=== PATIENT | female | born 1995 | race Caucasian/White ===

== ENCOUNTER 2017-06-08 09:01 | Outpatient (RCR) | payer MEDICAID, SELFPAY ==
[2017-06-08 09:37] LABS: Absolute Lymphocyte Count 1.73 X10^3/ul (0.83-4.51); Absolute Neutrophil Count 2.9 X10^3/uL (2.0-7.7); Basophil# 0.03 X10^3/uL; Basophil% 0.6 % (0-1); Eosinophils% 1.9 % (0-5); Hemoglobin 12.4 g/dl (12.0-15.0); Lymphocyte # 1.73 X10^3/ul (4.0); Lymphocyte % 33.7 % (19-41); Mean Corpuscular Hgb 24.8 pg (27.0-32.0); Mean Corpuscular Volume 79.8 fL (81-99); Mean Platelet Vol. 12.2 fl (6.2-12.0); Monocyte# 0.39 X10^3/uL; Monocyte% 7.6 % (0-10); Neutrophil # 2.88 X10^3/uL (2.7-7.7); POSITIVE COUNT NO; POSITIVE DIFFERENTIAL NO; POSITIVE MORPHOLOGY NO; Platelet Count 214 K/mm3 (150-450); RBC Distribution Width CV 14.8 % (11.6-14.6); RBC Distribution Width SD 42.3 fl (35.1-43.9); Red Blood Count 5.01 M/mm3 (4.2-5.4); White Blood Count 5.1 K/mm3 (4.4-11.0)
[2017-06-08 09:47] LABS: AST(SGOT) 48 U/L (15-37); Alanine Aminotransfer ALT/SGPT 55 U/L (13-56); Albumin, Serum 4.2 g/dL (3.2-5.0); Alkaline Phosphatase 171 U/L (45-117); Anion Gap 7 (5-15); BUN 14 mg/dL (7-18); BUN/Creat Ratio 13.6 RATIO (10-20); Calcium,Total 9.3 mg/dL (8.5-10.1); Chloride 105 mmol/L (98-107); Creatinine, Serum 1.03 mg/dL (0.55-1.02); EST Glomerular Filtration Rate 71 mL/min (>60); Est Glom Filt Rate - Afr Amer 86 mL/min (>60); GGTP 543 U/L (5-55); Globulin 4.1 g/dL (2.2-4.2); Glucose 107 mg/dL (74-106); Magnesium 1.8 mg/dL (1.6-2.6); Potassium 4.3 mmol/L (3.5-5.1); Protein, Total 8.3 g/dL (6.4-8.2); Sodium Level 138 mmol/L (136-145)
[2017-06-08 10:05] LABS: Prograf-FK506 TO CCF/UNIV MAILED SPECIMEN
== END 2017-06-08 09:30 | disposition home or self-care (01) ==
LOC: LAB 09:01
DX: Z94.4 Liver transplant status (principal)
CPT/HCPCS: 36415; 80053; 82977; 83735; 84100; 85025

== ENCOUNTER 2017-07-09 16:33 | Emergency (ER) | payer MEDICAID, SELFPAY ==
[2017-07-09 16:36] VITALS: BP 151/109; PULSE 122; RESP 22; TEMP 37.3; O2SAT 97; BMI 23.2
--- NOTE | 2017-07-09 16:45 | EKG12_ITS ---
Test Reason : CHEST PAIN Blood Pressure : / mmHG Vent. Rate : 116 BPM Atrial Rate : 116 BPM P-R Int : 142 ms QRS Dur : 074 ms QT Int : 312 ms P-R-T Axes : 042 037 020 degrees QTc Int : 433 ms Sinus tachycardia Otherwise normal ECG Confirmed by KATYA IGLESIAS ([id number]), city editor DEJON BYRNE ([id number] on 07/13/2017 1:41:20 PM Referred By: LAINE Confirmed By:KATYA IGLESIAS
--- NOTE | 2017-07-09 16:56 | RAD_ITS ---
STUDY: X-RAY CHEST REASON FOR EXAM: Female, 21 years old. Chest pain TECHNIQUE: Single frontal view of the chest. COMPARISON: May 16, 2017 FINDINGS: The lungs are clear and expanded. There is no demonstrated pleural abnormality. Normal size heart. Normal mediastinum and rafael. Normal visualized pulmonary arteries. Normal visualized aortic arch and descending thoracic aorta. Normal visualized thoracic spine. Normal visualized ribs, clavicles, and shoulders. There is no demonstrated abnormality of the visualized soft tissue structures of the upper abdomen. RAD/Chest 1 View (Portable) IMPRESSION: Normal x-ray examination of the chest. Electronically Signed: Stefano Baez MD at 17:53 EST , Service support ,
[2017-07-09 16:58] VITALS: PULSE 126; RESP 27; O2SAT 92; O2SAT 96
--- NOTE | 2017-07-09 17:02 | ED.RN ---
PT REPORTS SORE THROAT, MIGRAINE AND CHEST TIGHTNESS. RECENTLY RELEASED FROM [facility] FOR ABDOMINAL ISSUES. UNABLE TO GWET FLU SHOT, AND REPORTS HAVING STREP THROAT 5 TIMES IN THE LAST YEAR.
--- NOTE | 2017-07-09 17:03 | CT_ITS ---
STUDY: CTA CHEST REASON FOR EXAM: Female, 21 years old. Chest pain and shortness of breath. Liver transplant. RADIATION DOSAGE (If Supplied By Facility): CTDIvol = ( 12.41 ) mGy, DLP = ( 172.32 ) mGycm TECHNIQUE: The examination was performed with the intravenous administration of 75 ml of Isovue 370 contrast material. Post-processing of the angiographic images was performed, with multiplanar reformation and 3D reconstruction. Individualized dose optimization techniques were used for this CT. COMPARISON: Chest x-ray July 09, 2017 FINDINGS: Normal enhancement of the main pulmonary artery and right and left pulmonary arteries. Normal enhancement of the bilateral peripheral pulmonary arteries. There is no demonstrated pulmonary embolism. Normal thoracic aorta and visualized great vessels. There is no demonstrated aortic dissection. Normal heart and pericardium. Normal mediastinum. Normal hilar regions. Normal visualized trachea and bronchi. The lungs are well expanded. Mild diffuse perihilar groundglass opacity consistent with edema. Normal pleura. Normal chest wall structures. Normal osseous structures. Normal visualized upper abdomen. CT/CTA Chest W/WO Contrast IMPRESSION: Mild edema or pneumonitis. Electronically Signed: Stefano Baez MD at 18:07 EST , Service support ,
--- NOTE | 2017-07-09 17:06 | ED.VISSUMM ---
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 She was admitted there 1 week ago for vomiting and diarrhea her liver status is currently stable. She was in her usual state of health when she went to sleep last night and then woke with a sore throat headache and rapid heart rate hx of chronic strep pharyngitis she has been seen by ENT and told she needs a tonsillectomy but has refused to have the procedure done, she has no history of [place] PE DVT she does have a history of some nonspecific type of pneumonia for which she takes Bactrim 3 times a week. She is able to eat and swallow her bowel bladder habits have been normal Physical Examination: [] Rate is 110 sinus she is resting in the bed no distress her nose is clear her throat tonsils are quite large and red no obvious exudate her airways intact's breathing is normal swallowing is normal lungs are clear heart tones are tachycardic to 110 abdomen soft nontender upper lower extremity unremarkable lower extremities no sinus clubbing or edema neurologically she is awake and alert Test Results: [] Emergency Department Course and Treatment: [] Differential is rather extensive given all the above a comprehensive evaluations pursued Her strep throat screen was positive, her labs including liver function studies CTA chest x-ray were all otherwise unremarkable EKG sinus rhythm nothing acute reevaluation he states her symptoms are markedly improved she has no headache no throat pain no chest pain or heart rate now is about 100 she wants to go home CT of the chest did not show any signs of PE there was some question of edema versus pneumonitis but she has no coughing or pulmonary symptoms we discussed this finding she indicates that that really is nothing new and she does not feel as if she has any type of pneumonia now. discussed of frequent episodes of strep throat that she apparently has I recommended that she again follow up with the ENT she has been referred to to have the tonsillectomy she indicates she wants to be put on amoxicillin which is helped in the past and she will otherwise follow-up with her physicians for all the above symptoms discussed further management options she states her symptoms are resolved she feels fine she wants to go home, and again she will follow-up with her physicians Treatment Plan: [] Disposition: [] Home stable Impression: [] Acute strep pharyngitis, headache resolved, palpitations resolved history of liver transplant This note was generated with [employer] dictation software. It may contain incorrect words, spelling, and punctuation that were not noted in review of the chart prior to signing ED Disposition - Plan for ED Patient: Chief Complaint: Chest Pain Referrals: Care Physician,No Primary [Primary Care Provider] -
[2017-07-09] MEDS: DiphenhydrAMINE 50 MG/ML Syringe 25 MG IV (17:08)
[2017-07-09] MEDS: 0.9% Normal Saline 1,000 ML 150 ML IV (17:09)
[2017-07-09] MEDS: proCHLORPERazine 10 MG/2 ML Vial IV (17:09)
--- NOTE | 2017-07-09 17:09 | ED.DCSUM_ITS ---
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 she reports her liver status is chronic rejection being managed by physicians at this hospital. She was admitted there 1 week ago for vomiting and diarrhea her liver status is currently stable. She was in her usual state of health when she went to sleep last night and then woke with a sore throat headache and rapid heart rate hx of chronic strep pharyngitis she has been seen by ENT and told she needs a tonsillectomy but has refused to have the procedure done, she has no history of [place] PE DVT she does have a history of some nonspecific type of pneumonia for which she takes Bactrim 3 times a week. She is able to eat and swallow her bowel bladder habits have been normal Physical Examination: [] Rate is 110 sinus she is resting in the bed no distress her nose is clear her throat tonsils are quite large and red no obvious exudate her airways intact's breathing is normal swallowing is normal lungs are clear heart tones are tachycardic to 110 abdomen soft nontender upper lower extremity unremarkable lower extremities no sinus clubbing or edema neurologically she is awake and alert Test Results: [] Emergency Department Course and Treatment: [] Differential is rather extensive given all the above a comprehensive evaluations pursued Her strep throat screen was positive, her labs including liver function studies CTA chest x-ray were all otherwise unremarkable EKG sinus rhythm nothing acute reevaluation he states her symptoms are markedly improved she has no headache no throat pain no chest pain or heart rate now is about 100 she wants to go home CT of the chest did not show any signs of PE there was some question of edema versus pneumonitis but she has no coughing or pulmonary symptoms we discussed this finding she indicates that that really is nothing new and she does not feel as if she has any type of pneumonia now. discussed of frequent episodes of strep throat that she apparently has I recommended that she again follow up with the ENT she has been referred to to have the tonsillectomy she indicates she wants to be put on amoxicillin which is helped in the past and she will otherwise follow-up with her physicians for all the above symptoms discussed further management options she states her symptoms are resolved she feels fine she wants to go home, and again she will follow-up with her physicians Treatment Plan: [] Disposition: [] Home stable Impression: [] Acute strep pharyngitis, headache resolved, palpitations resolved history of liver transplant This note was generated with [employer] dictation software. It may contain incorrect words, spelling, and punctuation that were not noted in review of the chart prior to signing ED Disposition - Plan for ED Patient: Chief Complaint: Chest Pain Referrals: Care Physician,No Primary [Primary Care Provider] -
[2017-07-09 17:12] LABS: Absolute Lymphocyte Count 0.93 X10^3/ul (0.83-4.51); Absolute Neutrophil Count 8.8 X10^3/uL (2.0-7.7); Basophil# 0.02 X10^3/uL; Basophil% 0.2 % (0-1); Eosinophil# 0.11 X10^3/uL; Eosinophils% 1.1 % (0-5); Hematocrit 37.1 % (37-47); Hemoglobin 11.4 g/dl (12.0-15.0); Lymphocyte # 0.93 X10^3/ul (4.0); Lymphocyte % 8.9 % (19-41); Mean Corp Hgb Conc 30.7 g/gl (32-36); Mean Corpuscular Hgb 24.9 pg (27.0-32.0); Mean Corpuscular Volume 81.2 fL (81-99); Mean Platelet Vol. 11.6 fl (6.2-12.0); Monocyte% 4.8 % (0-10); Neutrophil # 8.84 X10^3/uL (2.7-7.7); Neutrophil % 84.8 % (47-70); Platelet Count 177 K/mm3 (150-450); RBC Distribution Width CV 15.1 % (11.6-14.6); RBC Distribution Width SD 43.6 fl (35.1-43.9); Red Blood Count 4.57 M/mm3 (4.2-5.4); White Blood Count 10.4 K/mm3 (4.4-11.0)
[2017-07-09 17:14] VITALS: TEMP 38.3
[2017-07-09 17:20] LABS: POSITIVE COUNT NO; POSITIVE DIFFERENTIAL NO; POSITIVE MORPHOLOGY NO
[2017-07-09 17:27] LABS: Anion Gap 10 (5-15); BUN 14 mg/dL (7-18); BUN/Creat Ratio 14.2 RATIO (10-20); Calcium,Total 8.8 mg/dL (8.5-10.1); Chloride 105 mmol/L (98-107); Creatinine, Serum 0.99 mg/dL (0.55-1.02); EST Glomerular Filtration Rate 75 mL/min (>60); Est Glom Filt Rate - Afr Amer 90 mL/min (>60); Glucose 110 mg/dL (74-106); Potassium 3.6 mmol/L (3.5-5.1); Sodium Level 137 mmol/L (136-145)
[2017-07-09 17:58] LABS: AST(SGOT) 27 U/L (15-37); Alanine Aminotransfer ALT/SGPT 34 U/L (13-56); Albumin, Serum 4.2 g/dL (3.2-5.0); Alkaline Phosphatase 131 U/L (45-117); Bilirubin, Direct 0.11 mg/dL (0.00-0.30); Globulin 4.1 g/dL (2.2-4.2); Lipase 84 U/L (73-393); Protein, Total 8.3 g/dL (6.4-8.2)
[2017-07-09 19:03] VITALS: PULSE 113; RESP 25; O2SAT 100
--- NOTE | 2017-07-09 19:23 | ED.DEP ---
ED Disposition - Plan for ED Patient: Chief Complaint: Chest Pain Instructions: ED Chest Pain Atypical Unkn Cause Prescriptions: Amoxicillin 500 mg PO TID #30 tab Referrals: Care Physician,No Primary [Primary Care Provider] - Additional Instructions: Follow-up with your doctors for all the above, follow-up with the ENT for tonsillectomy
[2017-07-09] MEDS: AMOXICILLIN 500 MG CAPSULE PO (19:34)
[2017-07-09 19:36] VITALS: BP 137/83; PULSE 114; RESP 18; O2SAT 100
--- NOTE | 2017-07-09 19:37 | ED.RN ---
IV DC'ED, CATHETER INTACT, SMALL GAUZE DRESSING PLACED. DISCHARGE INSTRUCTIONS GIVEN TO AND REVIEWED WITH PATIENT, PATIENT DENIES QUESTIONS OR CONCERNS AND VOICES UNDERSTANDING OF DISCHARGE INSTRUCTIONS. PT AMBULATES OUT OF ROOM WITHOUT DIFFICULTY.
== END 2017-07-09 19:39 | disposition home or self-care (01) ==
PROVIDERS: Emergency Provider Emergency Medicine
DX: J02.0 Streptococcal pharyngitis (principal); J18.9 Pneumonia, unspecified organism; G43.909 Migraine, unspecified, not intractable, without status migrainosus; R00.2 Palpitations; Z94.4 Liver transplant status
CPT/HCPCS: 71045; 71275; 80048; 80076; 83690; 84484; 85025; 87880; 93005; 96361; 96374; 96375; 99285; J7030; J7040; Q9967; A4216

== ENCOUNTER → 2017-08-13 08:59 | Outpatient (CLI) | payer MEDICAID, SELFPAY ==
[2017-08-13 09:46] LABS: Absolute Lymphocyte Count 1.21 X10^3/ul (0.83-4.51); Absolute Neutrophil Count 2.1 X10^3/uL (2.0-7.7); Basophil# 0.01 X10^3/uL; Basophil% 0.3 % (0-1); Eosinophil# 0.08 X10^3/uL; Eosinophils% 2.2 % (0-5); Hematocrit 39.5 % (37-47); Hemoglobin 11.8 g/dl (12.0-15.0); Lymphocyte # 1.21 X10^3/ul (4.0); Lymphocyte % 33.1 % (19-41); Mean Corp Hgb Conc 29.9 g/gl (32-36); Mean Corpuscular Hgb 24.4 pg (27.0-32.0); Mean Corpuscular Volume 81.8 fL (81-99); Mean Platelet Vol. 11.9 fl (6.2-12.0); Monocyte# 0.27 X10^3/uL; Monocyte% 7.4 % (0-10); Neutrophil # 2.09 X10^3/uL (2.7-7.7); Platelet Count 206 K/mm3 (150-450); RBC Distribution Width CV 15.1 % (11.6-14.6); RBC Distribution Width SD 45.5 fl (35.1-43.9); Red Blood Count 4.83 M/mm3 (4.2-5.4); White Blood Count 3.7 K/mm3 (4.4-11.0)
[2017-08-13 09:47] LABS: POSITIVE COUNT NO; POSITIVE DIFFERENTIAL NO; POSITIVE MORPHOLOGY NO
[2017-08-13 10:19] LABS: AST(SGOT) 46 U/L (15-37); Alanine Aminotransfer ALT/SGPT 59 U/L (13-56); Alkaline Phosphatase 149 U/L (45-117); Anion Gap 8 (5-15); BUN 15 mg/dL (7-18); BUN/Creat Ratio 14.9 RATIO (10-20); Calcium,Total 9.1 mg/dL (8.5-10.1); Chloride 107 mmol/L (98-107); Creatinine, Serum 1.01 mg/dL (0.55-1.02); EST Glomerular Filtration Rate 72 mL/min (>60); Est Glom Filt Rate - Afr Amer 88 mL/min (>60); GGTP 388 U/L (5-55); Globulin 4.1 g/dL (2.2-4.2); Glucose 96 mg/dL (74-106); Magnesium 1.8 mg/dL (1.6-2.6); Potassium 4.2 mmol/L (3.5-5.1); Protein, Total 8.1 g/dL (6.4-8.2); Sodium Level 140 mmol/L (136-145)
[2017-08-15 08:44] LABS: Tacrolimus (FK506) 6.4 ng/mL (2.0-20.0)
== END ==
DX: Z94.4 Liver transplant status (principal)
CPT/HCPCS: 36415; 80053; 80197; 82977; 83735; 84100; 85025

== ENCOUNTER 2017-09-03 14:42 | Emergency (ER) | payer MEDICAID, SELFPAY ==
--- NOTE | 2017-09-03 | CYSPIN_PTH ---
PATIENT: GREG LINDA LOC: ED U#:[id number] AGE/SX: 21/F ROOM: RE09/03/[address]: Dr. Brock Obregon MD : [id number] BED: DIS: 09/03/2017 SPEC #: [id number] RECD: 09/04/17 07:52 STATUS: TAM MOHAN #: [id number] CHICHO: 09/03/17 00:[address]: Brock Obregon DEPT: CYTOLOGY RECD BY: Jose Antonio Sanchez ENTERED: 09/04/17 07:52 SP TYPE: CYSPIN FL OTHR DR: Dr. Mark Vaughan MD Tissues: Cerebrospinal Fluid Procedures: Pap Stain (control) Special Stain Group II Cytospin Fluid HEADER OPERATION: Lumbar puncture PRE-OP DIAGNOSIS: Headache, neck pain/stiffness, temperature TISSUE SUBMITTED: Cerebrospinal fluid for cytology DIAGNOSIS CYTOLOGY Cerebrospinal fluid for cytology (cytospin): Negative for malignant cells. SJ:bhavesh 09/07/17 CYTOLOGY STUDY Slides are reviewed. The specimen is paucicellular and consists of lymphocytes and monocytes. CYTOLOGY GROSS Received is 3 ml of clear fluid labeled with the patient's name and and designated per the requisition as CSF. Submitted for cytology preparation. 09/04/17 TC:4 CPT: 88278
[2017-09-03 14:44] VITALS: BP 131/87; PULSE 137; RESP 14; TEMP 37.7; O2SAT 97; BMI 22.2
--- NOTE | 2017-09-03 15:03 | CT_ITS ---
STUDY: CT BRAIN WITHOUT CONTRAST REASON FOR EXAM: Female, 21 years old. Dizziness RADIATION DOSAGE (If Supplied By Facility): CTDIvol = ( 44.99 ) mGy, DLP = ( 728.62 ) mGycm TECHNIQUE: Transaxial CT imaging of the brain was performed without administration of intravenous contrast material. Individualized dose optimization techniques were used for this CT. COMPARISON: 04/14/2017 FINDINGS: There is no acute bleed or infarct. There are normal white matter tracts. The ventricles are normal in configuration. There is no hydrocephalus. The visualized paranasal sinuses are clear. The mastoid air cells are well aerated. There is no skull fracture. CT/Brain/Head without Contrast IMPRESSION: No acute intracranial abnormality. Electronically Signed: Dwayne Thomas, at 16:04 EDT Tel , Service support ,
--- NOTE | 2017-09-03 15:34 | ED.DCSUM_ITS ---
- ER Visit Summary Date of Service: 09/03/17 Chief Complaint: Bilateral headache with neck pain and stiffness and documented temperature to 102?F History of Present Illness: The patient is a 21 F status post liver transplant on immunosuppressive meds presents with a three-day headache of bilateral head with neck pain and stiffness. She complains of photophobia. She complained of nausea, vomiting diarrhea today and documented temperature 102.0?F. She states his headache is different than her migraine. She never has neck pain or stiffness. She states she has a rash which he believes is secondary to fleas. She denies rhinorrhea, postnasal drainage, congestion, earache or sore throat. She has a nonproductive cough. She is a non-smoker. She denies any dysuria, frequency, urgency or hematuria. She denies any myalgias or arthralgias. She denies bruising easily or problems with bleeding. Please read written note for complete detail Physical Examination: Heart rate is 137 with a temperature of 100?F. Heart rate is out of proportion to temperature elevation. Head is atraumatic normocephalic. Pupils equal round reactive. Extra muscles are intact. Possible light sensitivity. TMs normal. Nares patent no discharge. Posterior pharynx without erythema or exudate. Uvula is midline. There is no postnasal drainage. Patient complains of pain with flexion there is no true nuchal rigidity. Heart is rapid and regular without murmur, gallop or rub. Lungs are clear to auscultation. There is good move air bilaterally. Abdomen is soft nontender. There is no CVA tenderness noted. The rash patient has his proximal lateral right arm which may represent fleabites. The rash is not petechial or pruritic. Patient is alert and oriented ?3. Motor is 5 over 5. Sensory is intact. DTRs are symmetric with no clonus or Babinski sign. Cranial 2 through 12 are intact. Cerebellar testing is normal. Test Results: White count is 7.7 thousand with 89 segs no bands and 7 lymphs. Electrolyte panels unremarkable. Hepatic panels marked for an elevated AST and ALT of 48 and 62 respectively. This is unchanged from prior. Alk phos is slightly elevated 182. Lactate is 0.8 Spinal fluid was clear and colorless. There are 2 WBCs and no RBCs. Glucose and protein are normal. CMV and cryptococcal antigen are pending. Emergency Department Course and Treatment: He was established. Rocephin and vancomycin was ordered. Because she is on immunosuppressive a CT of the head was obtained to evaluate for sinus infection and to rule out contraindication to spinal tap. Patient was told if her CAT scan does not explain her symptoms she would need a spinal tap. Appropriate blood work was obtained which included CBC, BMP and hepatic. Blood cultures were ordered as well. Since the CT did not reveal any evidence of any abnormality to explain her fever and headache and there is no contraindication to a lumbar puncture she was consented for lumbar puncture. She was given opportunity ask questions. Her questions were answered. We proceeded once she signed the consent form. Her back was prepped with ChloraPrep since she is allergic to Betadine. Initial attempts at the L4/5 level was undertaken. After the fourth attempt moved to the L3-4 space. This was cannulated successfully on the first attempt. Fluid was initially blood-tinged. The fluid did clear and is clear and colorless. Opening pressure was 19 cm. Treatment Plan: Since patient's CSF fluid is normal plan is to discharge to home with appropriate home-going instructions Disposition: Discharge to home Impression: 1. Global headache of uncertain etiology 2. Fever in an immune suppressed patient 3. Status post liver transplant This note was generated with [employer] dictation software. It may contain incorrect words, spelling, and punctuation that were not noted in review of the chart prior to signing ED Disposition - Plan for ED Patient: Disposition: Home or Assisted Living Chief Complaint: Headache Instructions: ED Cephalgia Unspecified, ED Fever Unconf Cause Referrals: Mark Vaughan MD [Primary Care Provider] - 1-2 Days if not improving
[2017-09-03] MEDS: Ondansetron 4 MG/2 ML Vial IV (15:52)
[2017-09-03 15:55] LABS: Absolute Lymphocyte Count 0.53 X10^3/ul (0.83-4.51); Absolute Neutrophil Count 6.9 X10^3/uL (2.0-7.7); Basophil# 0.01 X10^3/uL; Basophil% 0.1 % (0-1); Eosinophil# 0.05 X10^3/uL; Eosinophils% 0.6 % (0-5); Hematocrit 39.5 % (37-47); Hemoglobin 12.7 g/dl (12.0-15.0); Lymphocyte # 0.53 X10^3/ul (4.0); Lymphocyte % 6.8 % (19-41); Mean Corp Hgb Conc 32.2 g/gl (32-36); Mean Corpuscular Hgb 25.3 pg (27.0-32.0); Mean Corpuscular Volume 78.8 fL (81-99); Mean Platelet Vol. 12.5 fl (6.2-12.0); Monocyte# 0.26 X10^3/uL; Monocyte% 3.4 % (0-10); Neutrophil # 6.88 X10^3/uL (2.7-7.7); Platelet Count 185 K/mm3 (150-450); RBC Distribution Width CV 14.8 % (11.6-14.6); RBC Distribution Width SD 41.9 fl (35.1-43.9); Red Blood Count 5.01 M/mm3 (4.2-5.4); White Blood Count 7.7 K/mm3 (4.4-11.0)
[2017-09-03 15:59] LABS: Differential Indicated SCAN CRITERIA MET; POSITIVE COUNT NO; POSITIVE DIFFERENTIAL YES; POSITIVE MORPHOLOGY NO
[2017-09-03 16:04] LABS: Lactic Acid 0.8 mmol/L (0.4-2.0)
[2017-09-03 16:06] LABS: AST(SGOT) 48 U/L (15-37); Alanine Aminotransfer ALT/SGPT 62 U/L (13-56); Albumin, Serum 4.5 g/dL (3.2-5.0); Alkaline Phosphatase 182 U/L (45-117); Anion Gap 9 (5-15); BUN 21 mg/dL (7-18); BUN/Creat Ratio 21.4 RATIO (10-20); Bilirubin, Direct 0.16 mg/dL (0.00-0.30); Calcium,Total 8.8 mg/dL (8.5-10.1); Chloride 105 mmol/L (98-107); Creatinine, Serum 0.98 mg/dL (0.55-1.02); EST Glomerular Filtration Rate 75 mL/min (>60); Est Glom Filt Rate - Afr Amer 90 mL/min (>60); Estimated Creatinine Clearance 71.22 ml/min; Glucose 92 mg/dL (74-106); Potassium 3.8 mmol/L (3.5-5.1); Protein, Total 8.5 g/dL (6.4-8.2); Sodium Level 136 mmol/L (136-145)
[2017-09-03 16:20] LABS: Differential Comment SCANNED
[2017-09-03 16:46] LABS: Cytology, Body Fluid / CSF SEE PATHOLOGY REPORT
[2017-09-03 16:53] LABS: Glucose Spinal Fluid 54 mg/dL (40-75)
[2017-09-03 16:58] LABS: Body Fluid Mononuclear WBC # 0.001 10^3/uL; Body Fluid Polynuclear WBC # 0.001 10^3/uL; Total Cell Count CSF 0.002 10^3/uL (0.000-0.000); White Count, CSF 0.002 10^3/uL (0.000-0.000)
[2017-09-03 17:17] LABS: Appearance CSF (character) CLEAR (Clear); Auto B Fluid Analyzer BKGD Ct COUNTS W/IN LIMITS (W/IN LIMITS); CSF Color COLORLESS (Colorless); Tested Tube # 4
[2017-09-03 17:18] LABS: Body Fluid QC Type(s) BF4Q; RBC Count, Spinal Fluid 157 /mm-3 (None seen)
[2017-09-03] MEDS: Naproxen 375 MG Tablet PO (17:52)
[2017-09-03 18:27] VITALS: BP 104/64; PULSE 109; RESP 24; O2SAT 98
[2017-09-03 19:18] VITALS: BP 124/70; PULSE 105; RESP 14; O2SAT 99
[2017-09-04 14:32] LABS: Pathologist Review Reviewed
[2017-09-07 16:09] LABS: Cryptococcus Antigen CSF Negative (Negative)
[2017-09-09 13:34] LABS: CMV by PCR Negative (Negative)
== END 2017-09-03 19:19 | disposition home or self-care (01) ==
PROVIDERS: Emergency Provider Emergency Medicine; Family Provider Family Medicine; PCP Family Medicine
DX: G44.009 Cluster headache syndrome, unspecified, not intractable (principal); R50.81 Fever presenting with conditions classified elsewhere; Z94.4 Liver transplant status; F32.9 Major depressive disorder, single episode, unspecified; Z79.899 Other long term (current) drug therapy
CPT/HCPCS: 62270; 70450; 80048; 80076; 82945; 83605; 84157; 85025; 87040; 87070; 87205; 87255; 87496; 87899; 88108; 88313; 89050; 89051; 96365; 96367; 96375; 99283; J7030; J7040; J7050; A4216; J0696; J2405

== ENCOUNTER 2017-10-14 14:20 | Emergency (ER) | payer MEDICAID, SELFPAY ==
[2017-10-14 14:21] VITALS: BP 138/92; PULSE 89; RESP 16; TEMP 36.8; O2SAT 100; BMI 22.2
--- NOTE | 2017-10-14 15:40 | ED.DCSUM_ITS ---
- ER Visit Summary Date of Service: 10/14/17 Chief Complaint: Headache History of Present Illness: The patient is a 21 F with a history of migraines presenting with what she describes as her typical migraine. It started gradually 2 days ago and has not resolved with her Imitrex. She is nauseated and has vomited which she states is typical with a bad migraine. She denies new or concerning features. It was not sudden or severe in onset. Not the worst headache of her life. No fever or neck pain. She does have a history of liver transplant and is on immunosuppressants. She had a lumbar puncture the last time she was here which was negative. She denies any fever or other similar symptoms like she had before. She feels this is her typical migraine. She would also like to have her hemoglobin checked because she saw her doctor recently for lightheadedness that has been intermittent for several months and she was told that she would need to get her blood counts checked to make sure she is not anemic. She has an appointment with her liver specialist in 1 week. She has been doing well from that standpoint. Physical Examination: Vitals are within normal limits. She is not in distress. Neck is supple. No meningeal findings. Heart tones are regular and without murmur. Lungs are clear bilaterally with good air movement. Abdomen is soft and nontender. No focal or lateralizing neuro findings. Normal mental status examination. Test Results: She did want me to check her hemoglobin because her doctor was planning on ordering this. It was slightly low at 11.7. She denies any dark or tarry stools. Denies heavy vaginal bleeding. I believe this can safely be further investigated as an outpatient. In terms of her headache, she was medicated here with Benadryl and Compazine as well as IV fluids. Her pain had nearly resolved on repeat examination. She has a completely normal neurologic exam, no fever, no meningeal findings. While she is immunosuppressed, she has no medical findings of meningitis at this time and states that this feels similar to her typical migraine. I believe she can safely be discharged home to follow-up with her specialist. She will return if worse. Emergency Department Course and Treatment: Follow-up with her specialists Disposition: Home stable condition Impression: Initial encounter acute on chronic migraine This note was generated with [employer] dictation software. It may contain incorrect words, spelling, and punctuation that were not noted in review of the chart prior to signing ED Disposition - Plan for ED Patient: Chief Complaint: Headache Instructions: ED Nausea Vomiting, ED Headache Migraine, Anemia Referrals: Mark Vaughan MD [Primary Care Provider] -
[2017-10-14 16:19] LABS: Hemoglobin 11.3 g/dl (12.0-15.0)
[2017-10-14 16:20] LABS: Hematocrit 37.4 % (37-47)
[2017-10-14] MEDS: 0.9% Normal Saline 1,000 ML 999 ML IV (16:27)
[2017-10-14] MEDS: DiphenhydrAMINE 50 MG/ML Syringe 25 MG IV (16:28)
[2017-10-14] MEDS: proCHLORPERazine 10 MG/2 ML Vial IV (16:28)
[2017-10-14 17:48] VITALS: BP 123/78; PULSE 69; RESP 16; O2SAT 99
== END 2017-10-14 17:42 | disposition home or self-care (01) ==
LOC: ED 16:04
PROVIDERS: Emergency Provider Emergency Medicine; Family Provider Family Medicine; PCP Family Medicine
DX: G43.909 Migraine, unspecified, not intractable, without status migrainosus (principal); D64.9 Anemia, unspecified; Z94.4 Liver transplant status
CPT/HCPCS: 85014; 85018; 96361; 96374; 96375; 99283; J7030; A4216

== ENCOUNTER 2017-11-11 08:38 | Outpatient (RCR) | payer MEDICAID, SELFPAY ==
[2017-11-11 09:31] LABS: Absolute Lymphocyte Count 1.33 X10^3/ul (0.83-4.51); Absolute Neutrophil Count 2.3 X10^3/uL (2.0-7.7); Basophil# 0.02 X10^3/uL; Basophil% 0.5 % (0-1); Eosinophil# 0.13 X10^3/uL; Eosinophils% 3.2 % (0-5); Hematocrit 39.1 % (37-47); Hemoglobin 12.5 g/dl (12.0-15.0); Lymphocyte # 1.33 X10^3/ul (4.0); Lymphocyte % 32.7 % (19-41); Mean Corpuscular Hgb 26.9 pg (27.0-32.0); Mean Corpuscular Volume 84.1 fL (81-99); Mean Platelet Vol. 12.3 fl (6.2-12.0); Monocyte# 0.33 X10^3/uL; Monocyte% 8.1 % (0-10); Neutrophil # 2.25 X10^3/uL (2.7-7.7); Neutrophil % 55.3 % (47-70); POSITIVE COUNT NO; POSITIVE DIFFERENTIAL NO; POSITIVE MORPHOLOGY NO; Platelet Count 149 K/mm3 (150-450); RBC Distribution Width CV 16.9 % (11.6-14.6); RBC Distribution Width SD 52.1 fl (35.1-43.9); Red Blood Count 4.65 M/mm3 (4.2-5.4); White Blood Count 4.1 K/mm3 (4.4-11.0)
[2017-11-11 10:02] LABS: ALB/GLOB Ratio 1.2 RATIO (0.9-2.4); AST(SGOT) 101 U/L (15-37); Alanine Aminotransfer ALT/SGPT 123 U/L (13-56); Albumin, Serum 4.1 g/dL (3.2-5.0); Alkaline Phosphatase 184 U/L (45-117); Anion Gap 8 (5-15); BUN 11 mg/dL (7-18); BUN/Creat Ratio 12.5 RATIO (10-20); Calcium,Total 8.9 mg/dL (8.5-10.1); Chloride 106 mmol/L (98-107); Creatinine, Serum 0.88 mg/dL (0.55-1.02); EST Glomerular Filtration Rate 85 mL/min (>60); Est Glom Filt Rate - Afr Amer 103 mL/min (>60); GGTP 604 U/L (5-55); Globulin 3.4 g/dL (2.2-4.2); Glucose 94 mg/dL (74-106); Phosphorus 3.3 mg/dL (2.5-4.9); Potassium 3.8 mmol/L (3.5-5.1); Protein, Total 7.5 g/dL (6.4-8.2); Sodium Level 142 mmol/L (136-145)
[2017-11-13 14:25] LABS: Tacrolimus (FK506) 1.1 ng/mL (2.0-20.0)
== END 2017-11-11 10:00 | disposition home or self-care (01) ==
LOC: LAB 08:38
DX: Z94.4 Liver transplant status (principal)
CPT/HCPCS: 36415; 80053; 80197; 82977; 83735; 84100; 85025

== ENCOUNTER 2017-12-31 14:45 | Emergency (ER) | payer MEDICAID, SELFPAY ==
[2017-12-31 14:45] VITALS: BP 125/85; PULSE 104; RESP 16; TEMP 37.1; O2SAT 99; BMI 21.5
[2017-12-31 15:22] VITALS: BP 147/105; PULSE 95; RESP 18; O2SAT 95
--- NOTE | 2017-12-31 15:24 | ED.VISSUMM ---
- ER Visit Summary Date of Service: 12/31/17 Chief Complaint: Headache and dizziness History of Present Illness: The patient is a 22 F with history of migraines and liver transplant who presents for 3 days of headache and dizziness. Patient states that this is typical for her normal migraines except the dizziness is more intense this time and is never lasted this long. She describes it as feeling imbalanced and like she is spinning. She began having nausea last night and vomited several times. Nausea is also typical but vomiting is not. She denies diplopia but does have blurred vision. No fever, chest pain, diarrhea, urinary symptoms, weakness or paresthesias. Patient is on immunosuppressants and has been compliant. She has had elevated blood pressure readings this week and is concerned for hypertension. She is no longer on antihypertensives because her blood pressure was well controlled without medications for the last few years. Physical Examination: Vital signs: afebrile, hemodynamically stable, no hypoxia on room air General: well nourished, well developed, in no distress, sitting in bed with the lights on Skin: warm, dry, no rash, no pallor HEENT: normocephalic and atraumatic; PERRL, EOMI, moist mucous membranes, neck is supple, no lymphadenopathy, full active range of motion, no meningismus Cardiovascular: Mildly tachycardic rate and Rhona rhythm without murmurs, no peripheral edema, 2+ pulses all distal extremities Respiratory: No increased work of breathing, lungs are clear to auscultation bilaterally, no rales, rhonchi or wheezing Abdominal: Abdomen is soft, tender in the right mid abdomen, with normoactive bowel sounds, no guarding or rebound, no masses MSK: Moves all extremities, no deformities, normal strength Neuro: Awake and alert, oriented ?4. No facial droop, sensation and motor function intact and symmetric Test Results: Abnormal Lab Results 12/31/17 12/31/17 12/31/17 15:34 15:34 15:34 WBC 5.3 RBC 4.68 Hgb 12.3 Hct 38.9 MCV 83.1 MCH 26.3 L MCHC 31.6 L RDW 13.4 RDW Differential 40.2 Plt Count 189 MPV 11.6 Immature Gran % (Auto) 0.200 Neut % (Auto) 63.0 Lymph % (Auto) 25.6 [place] % (Auto) 8.6 Eos % (Auto) 1.7 Baso % (Auto) 0.9 Absolute Neuts (auto) 3.4 Absolute Lymphs (auto) 1.36 Total Counted Not Reportable Sodium 139 Potassium 4.3 Chloride 107 Carbon Dioxide 21.0 Anion Gap 11 BUN 17 Creatinine 1.01 Estim Creat Clear Calc 68.52 Est GFR (MDRD) Af Amer 87 Est GFR (MDRD) Non-Af 72 BUN/Creatinine Ratio 16.8 Glucose 92 Calcium 9.1 Total Bilirubin 0.30 Direct Bilirubin 0.06 GGT 345 H AST 71 H ALT 61 H Alkaline Phosphatase 132 H Total Protein 8.2 Albumin 3.7 Globulin 4.5 H Urine Color Urine Clarity Urine pH Ur Specific [place] Urine Protein Urine Glucose (UA) Urine Ketones Urine Occult Blood Urine Nitrite Urine Bilirubin Urine Urobilinogen Ur Leukocyte Esterase Urine RBC Urine WBC Ur Squamous Epith Cells Urine Bacteria Urine Mucus Urine Test 12/31/17 12/31/17 15:50 15:50 WBC RBC Hgb Hct MCV MCH MCHC RDW RDW Differential Plt Count MPV Immature Gran % (Auto) Neut % (Auto) Lymph % (Auto) [place] % (Auto) Eos % (Auto) Baso % (Auto) Absolute Neuts (auto) Absolute Lymphs (auto) Total Counted Sodium Potassium Chloride Carbon Dioxide Anion Gap BUN Creatinine Estim Creat Clear Calc Est GFR (MDRD) Af Amer Est GFR (MDRD) Non-Af BUN/Creatinine Ratio Glucose Calcium Total Bilirubin Direct Bilirubin GGT AST ALT Alkaline Phosphatase Total Protein Albumin Globulin Urine Color Yellow Urine Clarity Clear Urine pH 6.0 Ur Specific [place] 1.015 Urine Protein 15 H Urine Glucose (UA) Normal Urine Ketones Negative Urine Occult Blood 25 H Urine Nitrite Negative Urine Bilirubin Negative Urine Urobilinogen Normal Ur Leukocyte Esterase Negative Urine RBC 0 SEEN Urine WBC 0-5 SEEN Ur Squamous Epith Cells 0-5 SEEN Urine Bacteria 0 SEEN Urine Mucus 0 SEEN Urine Test Negative Medications Given Discontinued Medications Diphenhydramine HCl (Benadryl) 50 mg IV X1 ONE Stop: 12/31/17 15:23 Last Admin: 12/31/17 15:49 Dose: 50 mg Sodium Chloride () 1,000 mls @ 999 mls/hr IV .Q1H1M ONE Stop: 12/31/17 16:22 Last Admin: 12/31/17 15:49 Dose: 999 mls/hr Prochlorperazine Edisylate (Compazine Iv) 10 mg IV X1 ONE Stop: 12/31/17 15:23 Last Admin: 12/31/17 15:49 Dose: 10 mg Promethazine HCl (Phenergan) 6.25 mg IV X1 ONE Stop: 12/31/17 16:53 Last Admin: 12/31/17 18:42 Dose: Not Given Emergency Department Course and Treatment: Patient presents with symptoms typical for her migraine headaches, although more persistent and severe than normal. Dr. Roberts from [facility], liver fellow, had called and was concerned about patient's reported hypertension this week. He requested certain labs be performed given her history of liver transplant. Patient had no leukocytosis, no leukopenia. No electrolyte derangements. Hepatic enzymes were very mildly elevated, and not significantly. GGT was checked and was 345, which when discussed with Dr. Roberts was actually improved from patient's baseline. negative. Patient received a migraine cocktail and on reevaluation had improvement of her headache. She still was having mild headache and some persistent dizziness so she was given additional Phenergan. After another period of observation patient had almost complete resolution of her headache and great improvement in her dizziness. Patient's blood pressure was no longer hypertensive, with reevaluation at 114/78. Patient was discussed in detail with Dr. Roberts, and his clinic will get in touch with the patient to set up a follow-up appointment for her for her liver transplant. Head imaging was not performed during this visit as patient had a CT head within the last few visits and had no acute findings. With her migraine headache and vertigo, head CT would be unlikely to show any significant change, especially with a normal head CT in the last few months. Patient was discharged home with her symptoms resolved. She was able to walk without any instability or vertigo. She was given a prescription for meclizine and will follow up with her liver transplant clinic. Treatment Plan: [] Disposition: [] Impression: Migraine headache, history of liver transplant This note was generated with [employer] software. It may contain incorrect words, spelling, and punctuation that were not noted in review of the chart prior to signing ED Disposition - Plan for ED Patient: Disposition: Home or Assisted Living Chief Complaint: Hypertension Instructions: ED Headache Migraine Prescriptions: Meclizine HCl 25 mg PO BID PRN PRN #15 tab PRN Reason: Dizziness Referrals: Care Physician,No Primary [NON-STAFF] - As soon as possible Additional Instructions: Please follow-up with your liver specialist at [facility]. They will call you with a follow-up appointment. You may use the meclizine for any further symptoms of vertigo. Continue your home migraine medications. If you have any further concerns, please return immediately to the emergency department for another evaluation.
[2017-12-31 15:47] LABS: Absolute Lymphocyte Count 1.36 X10^3/ul (0.83-4.51); Absolute Neutrophil Count 3.4 X10^3/uL (2.0-7.7); Basophil# 0.05 X10^3/uL; Basophil% 0.9 % (0-1); Eosinophil# 0.09 X10^3/uL; Eosinophils% 1.7 % (0-5); Hematocrit 38.9 % (37-47); Hemoglobin 12.3 g/dl (12.0-15.0); Lymphocyte # 1.36 X10^3/ul (4.0); Lymphocyte % 25.6 % (19-41); Mean Corp Hgb Conc 31.6 g/gl (32-36); Mean Corpuscular Hgb 26.3 pg (27.0-32.0); Mean Corpuscular Volume 83.1 fL (81-99); Mean Platelet Vol. 11.6 fl (6.2-12.0); Monocyte# 0.46 X10^3/uL; Monocyte% 8.6 % (0-10); Neutrophil # 3.35 X10^3/uL (2.7-7.7); Platelet Count 189 K/mm3 (150-450); RBC Distribution Width CV 13.4 % (11.6-14.6); RBC Distribution Width SD 40.2 fl (35.1-43.9); Red Blood Count 4.68 M/mm3 (4.2-5.4); White Blood Count 5.3 K/mm3 (4.4-11.0)
[2017-12-31 15:48] LABS: POSITIVE COUNT NO; POSITIVE DIFFERENTIAL NO; POSITIVE MORPHOLOGY NO
[2017-12-31] MEDS: DiphenhydrAMINE 50 MG/ML Syringe IV (15:49)
[2017-12-31] MEDS: proCHLORPERazine 10 MG/2 ML Vial IV (15:49)
[2017-12-31] MEDS: 0.9% Normal Saline 1,000 ML 999 ML IV (15:49)
[2017-12-31 16:01] LABS: Anion Gap 11 (5-15); BUN 17 mg/dL (7-18); BUN/Creat Ratio 16.8 RATIO (10-20); Calcium,Total 9.1 mg/dL (8.5-10.1); Chloride 107 mmol/L (98-107); Creatinine, Serum 1.01 mg/dL (0.55-1.02); EST Glomerular Filtration Rate 72 mL/min (>60); Est Glom Filt Rate - Afr Amer 87 mL/min (>60); Estimated Creatinine Clearance 68.52 ml/min; GGTP 345 U/L (5-55); Glucose 92 mg/dL (74-106); Potassium 4.3 mmol/L (3.5-5.1); Sodium Level 139 mmol/L (136-145)
[2017-12-31 16:01] LABS: Bacteria 0 SEEN /hpf (None Seen); Mucous, Urine 0 SEEN /hpf (<or=2+); Red Blood Cells-Urine 0 SEEN /hpf (0-5)
[2017-12-31 16:04] LABS: Color, Urine Yellow (Yellow); Glucose, Dipstick Normal (Normal); Ketone-Dipstick Negative (Negative); Nitrite-Dipstick Negative (Negative); Occult Blood-Urine 25 /ul (Negative); Protein-Dipstick 15 mg/dl (Negative); Specific Gravity, Urine 1.015 (1.002-1.030); Urine Bilirubin Dipstick Negative (Negative); Urine Clarity Clear (Clear); Urine Urobilinogen Normal (Normal)
[2017-12-31 16:05] LABS: Internal QC Validated? YES +Cl - CLEAR BKGD; Leukocyte Esterase-Dipstick Negative /ul (Negative); Pregnancy, Urine Negative Negative
[2017-12-31 16:09] LABS: AST(SGOT) 71 U/L (15-37); Alanine Aminotransfer ALT/SGPT 61 U/L (13-56); Albumin, Serum 3.7 g/dL (3.2-5.0); Alkaline Phosphatase 132 U/L (45-117); Bilirubin, Direct 0.06 mg/dL (0.00-0.30); Globulin 4.5 g/dL (2.2-4.2); Protein, Total 8.2 g/dL (6.4-8.2)
[2017-12-31 16:41] LABS: Squamous Epithelial Cells - UA 0-5 SEEN /hpf (5-10)
[2017-12-31 16:42] LABS: White Blood Cells 0-5 SEEN /hpf (0-5)
[2017-12-31 18:12] VITALS: BP 114/78; PULSE 89; RESP 16; O2SAT 99
--- NOTE | 2017-12-31 19:05 | ED.DEP ---
ED Disposition - Plan for ED Patient: Disposition: Home or Assisted Living Chief Complaint: Hypertension Instructions: ED Headache Migraine Prescriptions: Meclizine HCl 25 mg PO BID PRN PRN #15 tab PRN Reason: Dizziness Referrals: Care Physician,No Primary [NON-STAFF] - As soon as possible Additional Instructions: Please follow-up with your liver specialist at [facility]. They will call you with a follow-up appointment. You may use the meclizine for any further symptoms of vertigo. Continue your home migraine medications. If you have any further concerns, please return immediately to the emergency department for another evaluation.
--- NOTE | 2017-12-31 19:08 | DCINST.ED_ITS ---
ED Disposition - Plan for ED Patient: Disposition: Home or Assisted Living Chief Complaint: Hypertension Instructions: ED Headache Migraine Prescriptions: Meclizine HCl 25 mg PO BID PRN PRN #15 tab PRN Reason: Dizziness Referrals: Care Physician,No Primary [NON-STAFF] - As soon as possible Additional Instructions: Please follow-up with your liver specialist at [facility]. They will call you with a follow-up appointment. You may use the meclizine for any further symptoms of vertigo. Continue your home migraine medications. If you have any further concerns, please return immediately to the emergency department for another evaluation.
[2017-12-31 19:34] VITALS: BP 118/78; PULSE 78; RESP 16; O2SAT 100
== END 2017-12-31 19:35 | disposition home or self-care (01) ==
PROVIDERS: Emergency Provider Emergency Medicine; Family Provider Family Medicine; PCP Family Medicine
DX: G43.909 Migraine, unspecified, not intractable, without status migrainosus (principal); Z94.4 Liver transplant status
CPT/HCPCS: 80048; 80076; 81001; 81025; 82977; 85025; 87086; 96374; 96375; 99285; J7030; A4216

== ENCOUNTER 2018-01-13 08:42 | Outpatient (RCR) | payer MEDICAID, SELFPAY ==
[2018-01-13 09:09] LABS: Absolute Lymphocyte Count 1.23 X10^3/ul (0.83-4.51); Absolute Neutrophil Count 2.3 X10^3/uL (2.0-7.7); Basophil# 0.02 X10^3/uL; Basophil% 0.5 % (0-1); Eosinophil# 0.16 X10^3/uL; Eosinophils% 3.9 % (0-5); Hemoglobin 12.1 g/dl (12.0-15.0); Lymphocyte # 1.23 X10^3/ul (4.0); Lymphocyte % 30.2 % (19-41); Mean Corp Hgb Conc 31.8 g/gl (32-36); Mean Corpuscular Hgb 26.7 pg (27.0-32.0); Mean Corpuscular Volume 83.9 fL (81-99); Mean Platelet Vol. 11.6 fl (6.2-12.0); Monocyte% 9.8 % (0-10); Neutrophil # 2.25 X10^3/uL (2.7-7.7); Neutrophil % 55.4 % (47-70); Platelet Count 165 K/mm3 (150-450); RBC Distribution Width SD 38.7 fl (35.1-43.9); Red Blood Count 4.53 M/mm3 (4.2-5.4); White Blood Count 4.1 K/mm3 (4.4-11.0)
[2018-01-13 09:12] LABS: POSITIVE COUNT NO; POSITIVE DIFFERENTIAL NO; POSITIVE MORPHOLOGY NO
[2018-01-13 09:33] LABS: AST(SGOT) 54 U/L (15-37); Alanine Aminotransfer ALT/SGPT 63 U/L (13-56); Albumin, Serum 3.9 g/dL (3.2-5.0); Alkaline Phosphatase 140 U/L (45-117); Anion Gap 7 (5-15); BUN 14 mg/dL (7-18); BUN/Creat Ratio 16.5 RATIO (10-20); Chloride 105 mmol/L (98-107); Creatinine, Serum 0.85 mg/dL (0.55-1.02); EST Glomerular Filtration Rate 88 mL/min (>60); Est Glom Filt Rate - Afr Amer 107 mL/min (>60); GGTP 371 U/L (5-55); Globulin 3.8 g/dL (2.2-4.2); Glucose 83 mg/dL (74-106); Phosphorus 3.3 mg/dL (2.5-4.9); Protein, Total 7.7 g/dL (6.4-8.2); Sodium Level 138 mmol/L (136-145)
== END 2018-01-13 10:00 ==
LOC: LAB 08:42
DX: Z94.4 Liver transplant status (principal)
CPT/HCPCS: 36415; 80053; 80197; 82977; 83735; 84100; 85025

== ENCOUNTER 2018-02-02 21:52 | Emergency (ER) | payer MEDICAID, SELFPAY ==
[2018-02-02 21:53] VITALS: BP 134/98; PULSE 114; RESP 14; TEMP 36.6; O2SAT 97; BMI 21.2
--- NOTE | 2018-02-02 22:01 | EKG12_ITS ---
Test Reason : HEADACHE Blood Pressure : / mmHG Vent. Rate : 101 BPM Atrial Rate : 101 BPM P-R Int : 142 ms QRS Dur : 086 ms QT Int : 354 ms P-R-T Axes : 050 047 048 degrees QTc Int : 459 ms Sinus tachycardia Otherwise normal ECG Confirmed by YASMIN DEL RIO MD ([id number]), make up editor DEJON BYRNE ([id number]) on 02/08/2018 3:40:53 PM Referred By: PARVIN Confirmed By:YASMIN DEL RIO MD
--- NOTE | 2018-02-02 22:24 | ED.VISSUMM ---
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 Patient presents complaining of a headache that began gradually yesterday and grossly worse today. She had multiple headaches like this before. Patient has had 6 Years all of which have been negative. No significant family history of intracranial bleeds or aneurysms. She denies any trauma. She denies any fever or sinus congestion. She is on no blood thinners. Physical Examination: Well-appearing young female. She is a towel over her eyes because the lights in the room made her headache worse. Blood pressure 134/98. Afebrile. No distress. H EENT exam unremarkable. Pupils round reactive light. Extra motions are intact. Pupils are 2 mm bilaterally. No facial droop. No trauma to her face or scalp. Normal speech. Neck nontender no lymphadenopathy. No meningismus. She can easily flex and touch her chin to her chest. Lungs clear to auscultation. Heart regular rhythm no murmur rate about it. Abdomen is soft and nontender. Normal bowel sounds. No peritoneal signs. She is moving all 4 extremities. They are neurovascularly intact. Calves are nontender without edema or cords. She has equal symmetrical retail account specialist strength. Dorsi and plantar flexion intact. Neurologically she is awake and alert with no focal motor or sensory deficits. NIH score is 0. Test Results: EKG was obtained by nursing the patient in passing mentioning chest pain and shows a sinus rhythm rate of 101 with no acute signs of ischemia. Emergency Department Course and Treatment: Patient has been seen here multiple times with headaches. She states she is allergic to Toradol. I did explain to her that I prefer not to treat headaches with narcotics. She will be treated with IV Benadryl, Phenergan and Nubain. On repeat exam at 20 3:15 PM patient is doing well. Her headache is resolved. Her neurologic exam remained normal. He feels comfortable being discharged home. Treatment Plan: Discharged home. Follow-up with primary care physician. Disposition: Discharge Impression: Acute cephalgia with a history of chronic headaches Status post liver transplant This note was generated with [employer]ikwell [employer] software. It may contain incorrect words, spelling, and punctuation that were not noted in review of the chart prior to signing ED Disposition - Plan for ED Patient: Chief Complaint: Headache Referrals: Care Physician,No Primary [NON-STAFF] -
[2018-02-02] MEDS: DiphenhydrAMINE 50 MG/ML Syringe 25 MG IV (22:33)
[2018-02-02] MEDS: 0.9% Normal Saline 1,000 ML 999 ML IV (22:33)
[2018-02-02] MEDS: proMETHazine 25 MG/ML Syringe 12.5 MG IV (22:34)
[2018-02-02] MEDS: Nalbuphine 10 MG/ML Ampul IV (22:36)
--- NOTE | 2018-02-02 23:15 | ED.DEP ---
ED Disposition - Plan for ED Patient: Disposition: Home or Assisted Living Chief Complaint: Headache Instructions: ED Cephalgia Unspecified Referrals: Care Physician,No Primary [NON-STAFF] - As Needed Additional Instructions: Continue your daily medications. Follow-up with your doctor as needed.
[2018-02-02 23:28] VITALS: BP 114/73; PULSE 76; RESP 16; O2SAT 97
== END 2018-02-02 23:28 | disposition home or self-care (01) ==
PROVIDERS: Emergency Provider Emergency Medicine; Family Provider Family Medicine; PCP Family Medicine
DX: R51 Headache (principal); Z94.4 Liver transplant status; Z79.899 Other long term (current) drug therapy
CPT/HCPCS: 93005; 96374; 96375; 99284; J7030; A4216

== ENCOUNTER 2018-02-12 17:33 | Emergency (ER) | payer MEDICAID, SELFPAY ==
[2018-02-12 17:34] VITALS: BP 134/84; PULSE 81; RESP 16; TEMP 37.1; O2SAT 98; BMI 20.8
--- NOTE | 2018-02-12 18:38 | US_ITS ---
STUDY: ULTRASOUND OF THE FEMALE PELVIS - COMPLETE REASON FOR EXAM: Female, 22 years old. Right pelvic pain. LMP: 01/13/2018 TECHNIQUE: Transvaginal real-time examined with grayscale image documentation. TECHNICAL QUALITY: Adequate. COMPARISON: Prior pelvic ultrasound of October 14, 2016 FINDINGS: The uterus is anteverted and is in a midline position. The uterus measures 7.1 x 4.4 x 3.5 cm. Normal uterine cervix. The endometrium measures 11 mm in thickness, and is hyperechoic. Probable partially septated endometrial space. There is no demonstrated myometrial mass. I.U.D. - The patient does not have an I.U.D. The right ovary is visualized. The right ovary measures 4.9 x 4.7 x 3.6 cm. There is a 3.4 x 3.2 x 2.6 cm solid appearing nonvascular right ovarian mass consistent with a hemorrhagic cyst. There is no visualized right adnexal mass or complex lesion. There is normal arterial and normal venous vascularity. The left ovary is visualized. The left ovary measures 2.2 x 1.6 x 1.0 cm. There is no left ovarian cyst or ovarian mass. There is no visualized left adnexal mass or complex lesion. There is normal arterial and normal venous vascularity. There is no fluid in the cul-de-sac. US/Transvaginal Non- IMPRESSION: Partly septated endometrium of the uterus. Otherwise unremarkable uterus. 3.4 x 3.2 x 2.6 cm hemorrhagic cyst of the right ovary. Normal left ovary. No additional adnexal masses or free fluid. Electronically Signed: Malgorzata Waldrop MD at 19:48 EDT , Service support ,
--- NOTE | 2018-02-12 18:42 | ED.DCSUM_ITS ---
- ER Visit Summary Date of Service: 02/12/18 Chief Complaint: Right lower quadrant and right pelvic pain History of Present Illness: The patient is a 22 F 2 prior liver transplant and ovarian cysts. Patient states for the last 5-6 days she has had right lower quadrant more right pelvic pain. She has chronic nausea. Chronic diarrhea also. She denies any fever. She was seen by an area urgent care had a urinalysis done which showed white cells but was told culture was negative. Currently is on antibiotics that was started prior to the culture results. She denies any discharge. She denies any dysuria. She has had mild spotting. Her last menstrual period was 01/19/18. Physical Examination: Well-appearing young female. No acute distress. Vital signs stable afebrile. H EENT exam unremarkable. Neck nontender no lymphadenopathy. Lungs clear to auscultation bilaterally. Heart regular rhythm no murmur. Abdomen soft nondistended. Normal bowel sounds. No peritoneal signs. Her pain is lower than her right lower quadrant. It is below McBurney's point. Appears to be in the right adnexal region. She is nondistended. Moving all 4 extremities. Neurovascularly intact. Neurologically she is awake and alert. Back nontender. Test Results: C White count is 5. Hemoglobin 11.5 which is her baseline. Electrolytes unremarkable normal creatinine and gap. UA no nitrates. No weights or red cells. 5-10 up to his cells 2+ bacteria. She recently had a negative culture she tells me. Serum test negative. Pelvic ultrasound shows a right ovarian hemorrhagic cyst that is 3 x 3 x 2.6 cm. Good blood flow. The left side is normal. Emergency Department Course and Treatment: A right ovarian cyst. Pelvic ultrasound will be performed along with labs and a urinalysis and test. She will be given IV Zofran for nausea. Repeat exam at 20:02 pm patient is doing well. I instructed her all her test results. She will be discharged home. Anti-inflammatories for pain. Follow-up with her ENGINEERING TECHNICIAN physician. Treatment Plan: NSAIDs for pain. Disposition: Discharge Impression: Right-sided pelvic pain secondary to small right sided hemorrhagic ovarian cyst. History of prior liver transplant This note was generated with [employer]ter[employer]ation software. It may contain incorrect words, spelling, and punctuation that were not noted in review of the chart prior to signing ED Disposition - Plan for ED Patient: Chief Complaint: Abd Pain Referrals: Paresh Martins III, MD [Primary Care Provider] -
[2018-02-12] MEDS: Ondansetron 4 MG/2 ML Vial IV (18:51)
[2018-02-12 19:03] LABS: Color, Urine Yellow (Yellow); Glucose, Dipstick Normal (Normal); Ketone-Dipstick 5 mg/dl (Negative); Leukocyte Esterase-Dipstick 100 /ul (Negative); Nitrite-Dipstick Negative (Negative); Occult Blood-Urine 150 /ul (Negative); Protein-Dipstick 30 mg/dl (Negative); Urine Bilirubin Dipstick Negative (Negative); Urine Clarity Sl. Cloudy (Clear); Urine Urobilinogen 1 mg/dl (Normal); Urine pH 6.5 (5.0 - 8.0)
[2018-02-12 19:09] LABS: Absolute Lymphocyte Count 1.44 X10^3/ul (0.83-4.51); Absolute Neutrophil Count 3.3 X10^3/uL (2.0-7.7); Basophil# 0.02 X10^3/uL; Basophil% 0.4 % (0-1); Eosinophil# 0.12 X10^3/uL; Eosinophils% 2.3 % (0-5); Hematocrit 36.4 % (37-47); Hemoglobin 11.5 g/dl (12.0-15.0); Lymphocyte # 1.44 X10^3/ul (4.0); Lymphocyte % 27.2 % (19-41); Mean Corp Hgb Conc 31.6 g/gl (32-36); Mean Corpuscular Hgb 26.6 pg (27.0-32.0); Mean Corpuscular Volume 84.1 fL (81-99); Mean Platelet Vol. 12.3 fl (6.2-12.0); Monocyte# 0.46 X10^3/uL; Monocyte% 8.7 % (0-10); Neutrophil # 3.26 X10^3/uL (2.7-7.7); Neutrophil % 61.4 % (47-70); Platelet Count 148 K/mm3 (150-450); RBC Distribution Width CV 13.1 % (11.6-14.6); RBC Distribution Width SD 39.9 fl (35.1-43.9); Red Blood Count 4.33 M/mm3 (4.2-5.4); White Blood Count 5.3 K/mm3 (4.4-11.0)
[2018-02-12 19:17] LABS: Anion Gap 5 (5-15); BUN 17 mg/dL (7-18); BUN/Creat Ratio 17.7 RATIO (10-20); Calcium,Total 8.8 mg/dL (8.5-10.1); Chloride 105 mmol/L (98-107); Creatinine, Serum 0.96 mg/dL (0.55-1.02); EST Glomerular Filtration Rate 76 mL/min (>60); Est Glom Filt Rate - Afr Amer 92 mL/min (>60); Estimated Creatinine Clearance 72.08 ml/min; Glucose 90 mg/dL (74-106); Potassium 4.6 mmol/L (3.5-5.1); Sodium Level 137 mmol/L (136-145)
[2018-02-12 19:18] LABS: POSITIVE COUNT NO; POSITIVE DIFFERENTIAL NO; POSITIVE MORPHOLOGY NO
[2018-02-12 19:21] LABS: Pregnancy, Serum, hCG Quali. NEGATIVE Negative (0-9 Nonpreg)
[2018-02-12 19:22] LABS: Bacteria 2+ /hpf (None Seen); Mucous, Urine 2+ /hpf (<or=2+); Red Blood Cells-Urine 0-5 SEEN /hpf (0-5); Squamous Epithelial Cells - UA 5-10 SEEN /hpf (5-10); White Blood Cells 0-5 SEEN /hpf (0-5)
--- NOTE | 2018-02-12 20:04 | ED.DEP ---
ED Disposition - Plan for ED Patient: Disposition: Home or Assisted Living Chief Complaint: Abd Pain Instructions: ED Cyst Ovarian Referrals: Paresh Martins III, MD [Primary Care Provider] - As Needed Additional Instructions: Motrin and/or Tylenol for pain. You have a small 3 x 3 x 2.6 cm right ovarian hemorrhagic cyst. Follow-up with your CORPORATE DEVELOPMENT INTERN as needed.
[2018-02-12 20:25] VITALS: BP 125/76; PULSE 83; RESP 17; O2SAT 98
== END 2018-02-12 20:26 | disposition home or self-care (01) ==
PROVIDERS: Emergency Provider Emergency Medicine; Family Provider Family Medicine; PCP Family Medicine
DX: N83.201 Unspecified ovarian cyst, right side (principal); Z94.4 Liver transplant status; Z79.899 Other long term (current) drug therapy
CPT/HCPCS: 76830; 80048; 81001; 84703; 85025; 93976; 96374; 99283; J2405

== ENCOUNTER 2018-04-08 08:31 | Outpatient (RCR) | payer MEDICAID, SELFPAY ==
[2018-04-08 09:43] LABS: Absolute Lymphocyte Count 1.56 X10^3/ul (0.83-4.51); Absolute Neutrophil Count 3.1 X10^3/uL (2.0-7.7); Basophil# 0.03 X10^3/uL; Basophil% 0.6 % (0-1); Eosinophil# 0.14 X10^3/uL; Eosinophils% 2.7 % (0-5); Hematocrit 38.8 % (37-47); Hemoglobin 12.3 g/dl (12.0-15.0); Lymphocyte # 1.56 X10^3/ul (4.0); Lymphocyte % 30.2 % (19-41); Mean Corp Hgb Conc 31.7 g/gl (32-36); Mean Corpuscular Hgb 25.5 pg (27.0-32.0); Mean Corpuscular Volume 80.3 fL (81-99); Monocyte# 0.38 X10^3/uL; Monocyte% 7.4 % (0-10); Neutrophil # 3.06 X10^3/uL (2.7-7.7); Neutrophil % 59.1 % (47-70); POSITIVE COUNT NO; POSITIVE DIFFERENTIAL NO; POSITIVE MORPHOLOGY NO; Platelet Count 178 K/mm3 (150-450); RBC Distribution Width CV 13.2 % (11.6-14.6); RBC Distribution Width SD 38.1 fl (35.1-43.9); Red Blood Count 4.83 M/mm3 (4.2-5.4); White Blood Count 5.2 K/mm3 (4.4-11.0)
[2018-04-08 10:13] LABS: AST(SGOT) 46 U/L (15-37); Alanine Aminotransfer ALT/SGPT 43 U/L (13-56); Alkaline Phosphatase 129 U/L (45-117); Anion Gap 8 (5-15); BUN 15 mg/dL (7-18); BUN/Creat Ratio 19.1 RATIO (10-20); Calcium,Total 8.8 mg/dL (8.5-10.1); Chloride 107 mmol/L (98-107); Creatinine, Serum 0.78 mg/dL (0.55-1.02); EST Glomerular Filtration Rate 96 mL/min (>60); Est Glom Filt Rate - Afr Amer 117 mL/min (>60); GGTP 258 U/L (5-55); Globulin 3.9 g/dL (2.2-4.2); Glucose 92 mg/dL (74-106); Magnesium 1.9 mg/dL (1.6-2.6); Phosphorus 3.1 mg/dL (2.5-4.9); Potassium 3.8 mmol/L (3.5-5.1); Protein, Total 7.9 g/dL (6.4-8.2); Sodium Level 140 mmol/L (136-145)
== END 2018-04-08 09:00 | disposition home or self-care (01) ==
LOC: LAB 08:31
PROVIDERS: Family Provider Family Medicine; PCP Family Medicine
DX: Z94.4 Liver transplant status (principal)
CPT/HCPCS: 36415; 80053; 80197; 82977; 83735; 84100; 85025

== ENCOUNTER 2018-04-10 10:09 | Emergency (ER) | payer MEDICAID, SELFPAY ==
[2018-04-10 10:09] VITALS: BP 132/93; PULSE 101; RESP 16; TEMP 36.8; O2SAT 100; BMI 20.6
[2018-04-10] MEDS: 0.9% Normal Saline 1,000 ML 999 ML IV (11:00)
[2018-04-10] MEDS: DiphenhydrAMINE 50 MG/ML Syringe IV (11:01)
[2018-04-10] MEDS: proCHLORPERazine 10 MG/2 ML Vial IV (11:03)
[2018-04-10] MEDS: Penicillin G Benzathine 1.2 MU/2 ML Syringe IM (11:04)
--- NOTE | 2018-04-10 12:08 | ED.VISSUMM ---
- ER Visit Summary Date of Service: 04/10/18 Chief Complaint: Headache History of Present Illness: The patient is a [address] Vaughan. She has a history of migraine headaches. She also has a history of a liver transplant in 2009 at [facility]. Reports that she has a headache began 3 days ago. Is gradually gotten worse. Is a throbbing pain in frontal location. She reports that she has had similar headaches multiple times in the past. States pain is 1010 worsening a 10 currently. Is worsened by lights, noise, or movement. She taken Imitrex and Advil migraine with minimal relief. She reports is been nausea and vomited 3 times today. No blood or emesis. She complains of photophobia and blurred vision. She denies any recent trauma to her head. Patient reports that yesterday she was seen by Dr. Vaughan's nurse practitioner was diagnosed with strep throat by a rapid strep. She states that her tonsils are very swollen and that she is having a difficult time swallowing the antibiotic. She reports she has pain is 10 out of 10 severity there as well. Physical Examination: Vitals: Stable. Afebrile. General: Well-nourished and well-developed. Head: Normocephalic atraumatic. HEENT: 2+ tonsillar enlargement bilaterally with exudate. There is no evidence of a peritonsillar abscess. There is no uvular shift. She does have tender anterior lymphadenopathy bilaterally. TMs are within normal limits. Cardiovascular: Regular rate and rhythm. No murmurs. Respiratory: No respiratory distress. Clear to auscultation bilaterally. Abdominal: Soft, nontender, nondistended, normal bowel sounds. No guarding, rebound, or peritoneal signs. Back: Nontender. Extremities: Nontender, no edema. Skin: Normal color, no rash. Neurologic: Alert and oriented ?3. Cranial nerves II through XII are intact. Normal strength and sensation. Psych: Normal affect. Emergency Department Course and Treatment: Patient had an IV placed. She was given Compazine, Benadryl, and dexamethasone IV. She was given a dose of penicillin G IM. Treatment Plan: Repeat exam patient is resting comfortably feels well and would like to go home. She will be discharged instructions to follow-up with Dr. Vaughan in 1-2 days if her headache is not improving. She also given the names of Dr. Lee and Dr. Cerda for ENT as she is unsure that Dr. Cerda excepts her insurance. Return to the emergency department for any worsening symptoms. Disposition: To home in improved and stable condition. Impression: 1. Migraine headache. 2. Tonsillitis. This note was generated with TASS dictation software. It may contain incorrect words, spelling, and punctuation that were not noted in review of the chart prior to signing ED Disposition - Plan for ED Patient: Chief Complaint: Headache Instructions: ED Headache Migraine, ED Tonsillitis Referrals: Mark Vaughan MD [Primary Care Provider] - Kem Lee MD [STAFF PHYSICIAN] - 1-2 Weeks Teodoro Cerda MD [STAFF PHYSICIAN] - 1-2 Weeks
[2018-04-10 12:22] VITALS: BP 125/66; PULSE 92; RESP 16; O2SAT 100
== END 2018-04-10 12:23 | disposition home or self-care (01) ==
PROVIDERS: Emergency Provider Emergency Medicine; Family Provider Family Medicine; PCP Family Medicine
DX: G43.909 Migraine, unspecified, not intractable, without status migrainosus (principal); J03.90 Acute tonsillitis, unspecified; Z94.4 Liver transplant status
CPT/HCPCS: 96361; 96372; 96374; 96375; 99283; J7030; A4216

== ENCOUNTER 2018-07-10 11:52 | Outpatient (RCR) | payer MEDICAID, SELFPAY ==
[2018-05-31 15:13] VITALS: BMI 19.2
[2018-07-10 12:56] LABS: Absolute Neutrophil Count 2.5 X10^3/uL (2.0-7.7); Basophil# 0.06 X10^3/uL; Basophil% 1.4 % (0-1); Eosinophil# 0.15 X10^3/uL; Eosinophils% 3.4 % (0-5); Hemoglobin 10.5 g/dl (12.0-15.0); Lymphocyte % 32.2 % (19-41); Mean Corpuscular Hgb 24.6 pg (27.0-32.0); Mean Platelet Vol. 11.8 fl (6.2-12.0); Monocyte# 0.26 X10^3/uL; Neutrophil # 2.48 X10^3/uL (2.7-7.7); Platelet Count 206 K/mm3 (150-450); RBC Distribution Width CV 14.7 % (11.6-14.6); RBC Distribution Width SD 43.7 fl (35.1-43.9); Red Blood Count 4.27 M/mm3 (4.2-5.4); White Blood Count 4.4 K/mm3 (4.4-11.0)
[2018-07-10 12:57] LABS: POSITIVE COUNT NO; POSITIVE DIFFERENTIAL NO; POSITIVE MORPHOLOGY NO
[2018-07-10 13:19] LABS: GGTP 520 U/L (5-55); Magnesium 1.8 mg/dL (1.6-2.6)
[2018-07-12 11:26] LABS: ALB/GLOB Ratio 1.1 RATIO (0.9-2.4); AST(SGOT) 72 U/L (15-37); Alanine Aminotransfer ALT/SGPT 67 U/L (13-56); Albumin, Serum 4.1 g/dL (3.2-5.0); Alkaline Phosphatase 136 U/L (45-117); Anion Gap 10 (5-15); BUN 11 mg/dL (7-18); BUN/Creat Ratio 11.9 RATIO (10-20); Chloride 106 mmol/L (98-107); Creatinine, Serum 0.93 mg/dL (0.55-1.02); EST Glomerular Filtration Rate 79 mL/min (>60); Est Glom Filt Rate - Afr Amer 96 mL/min (>60); Globulin 3.8 g/dL (2.2-4.2); Glucose 94 mg/dL (74-106); Potassium 3.7 mmol/L (3.5-5.1); Protein, Total 7.9 g/dL (6.4-8.2); Sodium Level 142 mmol/L (136-145)
[2018-07-13 13:31] LABS: Tacrolimus (FK506) 1.5 ng/mL (2.0-20.0)
== END 2018-07-10 12:00 | disposition home or self-care (01) ==
LOC: LAB 11:52
PROVIDERS: Family Provider Family Medicine; PCP Family Medicine
DX: Z94.4 Liver transplant status (principal)
CPT/HCPCS: 36415; 80053; 80197; 82977; 83735; 84100; 85025

== ENCOUNTER 2018-07-31 13:06 | Emergency (ER) | payer MEDICAID, SELFPAY ==
[2018-05-31 15:13] VITALS: BMI 19.2
[2018-07-31 13:06] VITALS: BP 126/82; PULSE 118; RESP 14; TEMP 36.6; O2SAT 100; BMI 20.1
--- NOTE | 2018-07-31 13:43 | RAD_ITS ---
STUDY: X-RAY CHEST REASON FOR EXAM: Female, 22 years old. Cough with blood TECHNIQUE: AP COMPARISON: 07/09/2017 FINDINGS: The lungs are clear and expanded. There is no demonstrated pleural abnormality. Normal size heart. Normal mediastinum and rafael. Normal visualized pulmonary arteries. Normal visualized aortic arch and descending thoracic aorta. Normal visualized thoracic spine. Normal visualized ribs, clavicles, and shoulders. There is no demonstrated abnormality of the visualized soft tissue structures of the upper abdomen. RAD/Chest 1 View (Portable) IMPRESSION: Stable, nonacute portable x-ray examination of the chest. Electronically Signed: Josh Wray MD at 15:00 EDT , Service support ,
[2018-07-31] MEDS: Nalbuphine 10 MG/ML Ampul 5 MG IV (14:09)
[2018-07-31] MEDS: 0.9% Normal Saline 1,000 ML 1000 ML IV (14:12)
[2018-07-31] MEDS: DiphenhydrAMINE 50 MG/ML Syringe 25 MG IV (14:15)
[2018-07-31 14:19] VITALS: TEMP 36.6
[2018-07-31] MEDS: proMETHazine 25 MG/ML Syringe 6.25 MG IV (14:19)
[2018-07-31 14:21] LABS: Mucous, Urine 0 SEEN /hpf (<or=2+); Red Blood Cells-Urine 0 SEEN /hpf (0-5); White Blood Cells 0 SEEN /hpf (0-5)
[2018-07-31 14:24] LABS: Color, Urine Straw (Yellow); Glucose, Dipstick Normal (Normal); Ketone-Dipstick Negative (Negative); Leukocyte Esterase-Dipstick Negative /ul (Negative); Nitrite-Dipstick Negative (Negative); Occult Blood-Urine Negative /ul (Negative); Protein-Dipstick Negative (Negative); Specific Gravity, Urine 1.005 (1.002-1.030); Urine Bilirubin Dipstick Negative (Negative); Urine Clarity Clear (Clear); Urine Urobilinogen Normal (Normal); Urine pH 6.5 (5.0 - 8.0)
[2018-07-31 14:26] LABS: Internal QC Validated? YES +Cl - CLEAR BKGD; Pregnancy, Urine Negative Negative
[2018-07-31 14:26] LABS: Absolute Lymphocyte Count 2.25 X10^3/ul (0.83-4.51); Absolute Neutrophil Count 5.5 X10^3/uL (2.0-7.7); Basophil# 0.02 X10^3/uL; Basophil% 0.2 % (0-1); Eosinophil# 0.04 X10^3/uL; Eosinophils% 0.5 % (0-5); Hematocrit 35.9 % (37-47); Lymphocyte # 2.25 X10^3/ul (4.0); Lymphocyte % 26.8 % (19-41); Mean Corp Hgb Conc 30.6 g/gl (32-36); Mean Corpuscular Hgb 24.2 pg (27.0-32.0); Mean Corpuscular Volume 79.1 fL (81-99); Mean Platelet Vol. 11.8 fl (6.2-12.0); Monocyte# 0.61 X10^3/uL; Monocyte% 7.3 % (0-10); Neutrophil # 5.46 X10^3/uL (2.7-7.7); Neutrophil % 65.1 % (47-70); Platelet Count 221 K/mm3 (150-450); RBC Distribution Width SD 43.3 fl (35.1-43.9); Red Blood Count 4.54 M/mm3 (4.2-5.4); White Blood Count 8.4 K/mm3 (4.4-11.0)
[2018-07-31 14:29] LABS: Bacteria RARE /hpf (None Seen); Squamous Epithelial Cells - UA 0-5 SEEN /hpf (5-10)
[2018-07-31 14:36] LABS: Anion Gap 5 (5-15); BUN 16 mg/dL (7-18); BUN/Creat Ratio 18.5 RATIO (10-20); Calcium,Total 9.1 mg/dL (8.5-10.1); Chloride 108 mmol/L (98-107); Creatinine, Serum 0.86 mg/dL (0.55-1.02); EST Glomerular Filtration Rate 86 mL/min (>60); Est Glom Filt Rate - Afr Amer 104 mL/min (>60); Estimated Creatinine Clearance 80.14 ml/min; Glucose 122 mg/dL (74-106); Potassium 3.2 mmol/L (3.5-5.1); Sodium Level 139 mmol/L (136-145)
[2018-07-31 14:39] LABS: POSITIVE COUNT NO; POSITIVE DIFFERENTIAL NO; POSITIVE MORPHOLOGY NO
--- NOTE | 2018-07-31 15:06 | ED.VISSUMM ---
- ER Visit Summary Date of Service: 07/31/18 Chief Complaint: Headache History of Present Illness: The patient is a 22 F who had sore throat congestion for the past 2 weeks. She had a rapid strep several days ago that was negative. She is complaining of a migraine for the past 1 week, worse behind her eyes. She is been taking Imitrex without improvement. Last night she was coughing up blood chunks but had vomiting with no blood. Physical Examination: Vital signs remarkable only for heart rate of 118. Patient is lying in a darkened room. She is in no acute distress. Head neck examination was TMs to be clear bilaterally. She does have 3+ tonsils with no exudate. Uvula is midline. She has no meningismus. Heart is tachycardic and regular. Lungs sounds are clear. Abdomen is soft nontender. Neuro exam is normal. Test Results: Portable chest x-ray shows no acute disease. CBC reveals normal white count hemoglobin of 11. Chemistry studies significant only for potassium 3.2. Urinalysis and are negative. Rapid strep is negative. Emergency Department Course and Treatment: Patient was given IV fluids, Nubain, Phenergan, and Benadryl which is worked well for her migraines in the past. On repeat evaluation she does feel improved. She be discharged home with family member at this time. Treatment Plan: [] Disposition: Discharge Impression: Migraine, improved This note was generated with Swipely dictation software. It may contain incorrect words, spelling, and punctuation that were not noted in review of the chart prior to signing ED Disposition - Plan for ED Patient: Referrals: Mark Vaughan MD [Primary Care Provider] -
--- NOTE | 2018-07-31 15:09 | ED.DEP ---
ED Disposition - Plan for ED Patient: Disposition: Home or Assisted Living Instructions: ED Headache Migraine Referrals: Mark Vaughan MD [Primary Care Provider] - 3-5 Days if not improving
[2018-07-31 15:25] VITALS: BP 125/82; PULSE 91; RESP 16; O2SAT 100
== END 2018-07-31 15:28 | disposition home or self-care (01) ==
PROVIDERS: Emergency Provider Emergency Medicine; Family Provider Family Medicine; PCP Family Medicine
DX: G43.909 Migraine, unspecified, not intractable, without status migrainosus (principal); I10 Essential (primary) hypertension; F31.9 Bipolar disorder, unspecified; Z79.899 Other long term (current) drug therapy
CPT/HCPCS: 71045; 80048; 81001; 81025; 85025; 87880; 96361; 96374; 96375; 99283; J7030; A4216

== ENCOUNTER 2018-08-06 07:43 | Emergency (ER) | payer MEDICAID, SELFPAY ==
[2018-08-06 07:44] VITALS: BP 145/98; PULSE 90; RESP 16; TEMP 36.3; O2SAT 97; BMI 20.5
[2018-08-06] MEDS: proCHLORPERazine 10 MG/2 ML Vial IV (08:43)
[2018-08-06] MEDS: DiphenhydrAMINE 50 MG/ML Syringe IV (08:43)
[2018-08-06] MEDS: 0.9% Normal Saline 1,000 ML 1000 ML IV (08:44)
--- NOTE | 2018-08-06 08:52 | RAD_ITS ---
STUDY: X-RAY CHEST REASON FOR EXAM: Female, 22 years old. Cough and headaches. History of liver transplantation. TECHNIQUE: PA and lateral views of the chest. COMPARISON: Comparison is made with prior study dated July 31, 2018. FINDINGS: The lungs are clear and expanded. There is no demonstrated pleural abnormality. Normal size heart. Normal mediastinum and rafael. Normal visualized pulmonary arteries. Normal visualized aortic arch and descending thoracic aorta. Normal visualized thoracic spine. Normal visualized ribs, clavicles, and shoulders. A surgical clip is seen in the right upper quadrant. RAD/Chest PA and Lateral IMPRESSION: Normal x-ray examination of the chest. Electronically Signed: Dale Watts, at 10:04 EDT , Service support ,
[2018-08-06 08:56] LABS: Absolute Lymphocyte Count 1.41 X10^3/ul (0.83-4.51); Absolute Neutrophil Count 2.3 X10^3/uL (2.0-7.7); Basophil# 0.04 X10^3/uL; Eosinophil# 0.07 X10^3/uL; Eosinophils% 1.7 % (0-5); Hemoglobin 10.9 g/dl (12.0-15.0); Lymphocyte # 1.41 X10^3/ul (4.0); Lymphocyte % 34.6 % (19-41); Mean Corp Hgb Conc 31.1 g/gl (32-36); Mean Corpuscular Hgb 24.2 pg (27.0-32.0); Mean Corpuscular Volume 77.6 fL (81-99); Mean Platelet Vol. 10.9 fl (6.2-12.0); Monocyte# 0.28 X10^3/uL; Monocyte% 6.9 % (0-10); Neutrophil # 2.28 X10^3/uL (2.7-7.7); Neutrophil % 55.8 % (47-70); Platelet Count 175 K/mm3 (150-450); RBC Distribution Width CV 14.9 % (11.6-14.6); RBC Distribution Width SD 42.4 fl (35.1-43.9); Red Blood Count 4.51 M/mm3 (4.2-5.4); White Blood Count 4.1 K/mm3 (4.4-11.0)
[2018-08-06 08:58] LABS: POSITIVE COUNT NO; POSITIVE DIFFERENTIAL NO; POSITIVE MORPHOLOGY NO
[2018-08-06 09:11] LABS: ALB/GLOB Ratio 1.1 RATIO (0.9-2.4); AST(SGOT) 21 U/L (15-37); Alanine Aminotransfer ALT/SGPT 29 U/L (13-56); Alkaline Phosphatase 95 U/L (45-117); Anion Gap 6 (5-15); BUN 13 mg/dL (7-18); BUN/Creat Ratio 12.4 RATIO (10-20); Chloride 107 mmol/L (98-107); Creatinine, Serum 1.05 mg/dL (0.55-1.02); EST Glomerular Filtration Rate 69 mL/min (>60); Est Glom Filt Rate - Afr Amer 83 mL/min (>60); Estimated Creatinine Clearance 65.91 ml/min; Globulin 3.6 g/dL (2.2-4.2); Glucose 98 mg/dL (74-106); Potassium 3.5 mmol/L (3.5-5.1); Protein, Total 7.6 g/dL (6.4-8.2); Sodium Level 139 mmol/L (136-145)
[2018-08-06 09:14] LABS: Pregnancy, Serum, hCG Quali. NEGATIVE Negative (0-9 Nonpreg)
--- NOTE | 2018-08-06 09:28 | ED.VISSUMM ---
- ER Visit Summary Date of Service: 08/06/18 Chief Complaint: Headache History of Present Illness: The patient is a [address] Vaughan. She has a history of a liver transplant in 2009 at [facility]. She reports that she was here 6 days ago for a migraine that she had had for a week. It resolved after her treatment, but returned again the next day. She describes it as a sharp, stabbing pain that is posterior to her eyes. It is worsened this morning. It is 9 out of 10 at worst an 8 out of 10 currently. Is worsened by light or sound. It is unrelieved by Imitrex. She states that she has been nauseated and vomited 4-5 times this morning without blood. She does complain of blurred vision. She denies any injury to her head. No numbness or weakness. Patient reports that she has a cough that began last week. Is productive of green sputum with blood streaks. States that she has a sore throat that is 6 out of 10 in severity. She has mild shortness of breath and is not been wheezing. She denies any fever or chills. She is on CellCept and Prograf. Physical Examination: Vitals: Stable. Afebrile. General: Well-nourished and well-developed. Head: Normocephalic atraumatic. Neck: Supple, no lymphadenopathy. No JVD. Nontender. Cardiovascular: Regular rate and rhythm. No murmurs. Respiratory: No respiratory distress. Clear to auscultation bilaterally. Abdominal: Soft, nontender, nondistended, normal bowel sounds. No guarding, rebound, or peritoneal signs. Back: Nontender. Extremities: Nontender, no edema. Skin: Normal color, no rash. Neurologic: Alert and oriented ?3. Cranial nerves II through XII are intact. Normal strength and sensation. Psych: Normal affect. Test Results: CBC is remarkable for a white count of 4.1 with an H an H of 10.9 and 35.0. Chem-7 shows a creatinine of 1.05. LFTs are normal. test is negative. Chest x-ray shows no acute disease. Emergency Department Course and Treatment: Patient had an IV placed. She was given a liter of normal saline, Compazine, Benadryl, and dexamethasone IV. She has had significant relief from her headache. Treatment Plan: Patient will be discharged with Zofran for her nausea. Instructed to follow-up with her primary care physician in 1-2 days if not improving. Symptomatic care for her URI. Return to the emergency department for any worsening symptoms. Disposition: To home in improved and stable condition. Impression: 1. Cephalgia. 2. URI. This note was generated with [employer] dictation software. It may contain incorrect words, spelling, and punctuation that were not noted in review of the chart prior to signing ED Disposition - Plan for ED Patient: Instructions: ED Headache Migraine, ED Upper Resp Infec No Abx Tx Prescriptions: Ondansetron [Zofran Odt] 4 mg PO Q8H PRN PRN #10 tablet PRN Reason: Nausea Referrals: Mark Vaughan MD [Primary Care Provider] - 1-2 Days if not improving
--- NOTE | 2018-08-06 09:31 | ED.DCSUM_ITS ---
- ER Visit Summary Date of Service: 08/06/18 Chief Complaint: Headache History of Present Illness: The patient is a [address] Vaughan. She has a history of a liver transplant in 2009 at [facility]. She reports that she was here 6 days ago for a migraine that she had had for a week. It r esolved after her treatment, but returned again the next day. She describes it as a sharp, stabbing pain that is posterior to her eyes. It is worsened this morning. It is 9 out of 10 at worst an 8 out of 10 currently. Is worsened by light or sound. It is unrelieved by Imitrex. She states that she has been nauseated and vomited 4-5 times this morning without blood. She does complain of blurred vision. She denies any injury to her head. No numbness or weakness. Patient reports that she has a cough that began last week. Is productive of green sputum with blood streaks. States that she has a sore throat that is 6 out of 10 in severity. She has mild shortness of breath and is not been wheezing. She denies any fever or chills. She is on CellCept and Prograf. Physical Examination: Vitals: Stable. Afebrile. General: Well-nourished and well-developed. Head: Normocephalic atraumatic. Neck: Supple, no lymphadenopathy. No JVD. Nontender. Cardiovascular: Regular rate and rhythm. No murmurs. Respiratory: No respiratory distress. Clear to auscultation bilaterally. Abdominal: Soft, nontender, nondistended, normal bowel sounds. No guarding, rebound, or peritoneal signs. Back: Nontender. Extremities: Nontender, no edema. Skin: Normal color, no rash. Neurologic: Alert and oriented ?3. Cranial nerves II through XII are intact. Normal strength and sensation. Psych: Normal affect. Test Results: CBC is remarkable for a white count of 4.1 with an H an H of 10.9 and 35.0. Chem-7 shows a creatinine of 1.05. LFTs are normal. test is negative. Chest x-ray shows no acute disease. Emergency Department Course and Treatment: Patient had an IV placed. She was given a liter of normal saline, Compazine, Benadryl, and dexamethasone IV. She has had significant relief from her headache. Treatment Plan: Patient will be discharged with Zofran for her nausea. Instructed to follow-up with her primary care physician in 1-2 days if not improving. Symptomatic care for her URI. Return to the emergency department for any worsening symptoms. Disposition: To home in improved and stable condition. Impression: 1. Cephalgia. 2. URI. This note was generated with [employer] dictation software. It may contain incorrect words, spelling, and punctuation that were not noted in review of the chart prior to signing ED Disposition - Plan for ED Patient: Instructions: ED Headache Migraine, ED Upper Resp Infec No Abx Tx Prescriptions: Ondansetron [Zofran Odt] 4 mg PO Q8H PRN PRN #10 tablet PRN Reason: Nausea Referrals: Mark Vaughan MD [Primary Care Provider] - 1-2 Days if not improving
[2018-08-06 10:19] VITALS: PULSE 94; RESP 16; O2SAT 95
== END 2018-08-06 10:22 | disposition home or self-care (01) ==
LOC: ED 08:21
PROVIDERS: Emergency Provider Emergency Medicine; Family Provider Family Medicine; PCP Family Medicine
DX: R51 Headache (principal); J06.9 Acute upper respiratory infection, unspecified; Z94.4 Liver transplant status; Z79.899 Other long term (current) drug therapy
CPT/HCPCS: 71046; 80053; 84703; 85025; 96361; 96374; 96375; 99283; J7030; A4216

== ENCOUNTER 2018-08-27 08:46 | Day surgery (SDC) | payer MEDICAID, SELFPAY ==
[2018-08-27] VITALS (7 sets, daily range): BP systolic 115–148; BP diastolic 75–105; PULSE 70–93; RESP 16–18; TEMP 36.2–36.7; O2SAT 97–100; BMI 19.9
[2018-08-27 09:03] LABS: Internal QC Validated? YES +Cl - CLEAR BKGD
[2018-08-27 09:06] LABS: Pregnancy, Urine Negative Negative
[2018-08-27 09:28] LABS: Prothrombin Time (Protime)PT. 13.4 SECONDS (11.7-14.9)
[2018-08-27 09:29] LABS: Partial Thromboplast Time 29.9 Seconds (24.1-36.2)
--- NOTE | 2018-08-27 10:15 | TONS_PTH ---
PATIENT: GREG LINDA LOC: [facility] [place]#:[id number] AGE/SX: 22/F ROOM: RE08/27/[address]: Dr. Kem Lee MD : 1995 BED: DIS: 08/27/2018 SPEC #: [id number] RECD: 08/27/18 12:03 STATUS: TAM MOHAN #: [id number] CHICHO: 08/27/18 10:[address]: Kem Lee DEPT: SURGICAL PATHOLOGY RECD BY: Mandeep Hoover ENTERED: 08/27/18 12:30 SP TYPE: TONSILS OTHR DR: Dr. Mark Vaughan MD Tissues: A - Tonsil, NOS B - Tonsil, NOS Procedures: Surgery Specimen Level III HEADER OPERATION: Tonsillectomy PRE-OP DIAGNOSIS: Chronic tonsillitis TISSUE SUBMITTED: A - Right tonsil, B - Left tonsil MICROSCOPIC DIAGNOSIS A. Right tonsil: Reactive lymphoid hyperplasia, consistent with chronic tonsillitis. B. Left tonsil: Reactive lymphoid hyperplasia, consistent with chronic tonsillitis. AMANDA:bhavesh 08/30/18 MICROSCOPIC DESCRIPTION Slides are reviewed. GROSS DESCRIPTION A - Received in formalin labeled with the patient's name and designated right tonsil. The specimen consists of a tonsil that weighs 4.1 gm and measures 3 x 2 x 1.5 cm. The external surface is pink-craig, smooth, glistening and somewhat lobulated. Focally it is hemorrhagic, granular and bears cautery artifact. Serial cross sections through the tonsil reveal normal tonsillar architecture. Retarder Operator sections are submitted in one cassette. B - Received in formalin labeled with the patient's name and designated left tonsil. The specimen consists of a tonsil that weighs 4.3 gm and measures 2.8 x 2 x 1.5 cm. The external surface is pink-craig, smooth, glistening and somewhat lobulated. Focally it is hemorrhagic, granular and bears cautery artifact. Serial cross sections through the tonsil reveal normal tonsillar architecture. Retarder Operator sections are submitted in one cassette. / AMANDA:bhavesh 08/27/18 TC:3 CPT: 53226 x2 ADDENDUM ADDENDUM ADDENDUM ADDENDUM ADDENDUM ADDENDUM ADDENDUM ADDENDUM 09/14/2018 08:57 ADDENDUM 09/14/2018 08:57 ADDENDUM 09/14/2018 08:57 ADDENDUM 09/14/2018 08:57 ADDENDUM 09/14/2018 08:57 SOLID TUMOR IMMUNOHISTOCHEMICAL ANALYSIS FROM [facility] ANTIBODY: EBV RESULTS: Negative Please see complete report in e-chart or EMR for further details
--- NOTE | 2018-08-27 11:03 | PCM.OPRPT ---
Problem List (1) Chronic tonsillitis Status: Chronic Report of Operation Date of Procedure: 08/27/18 Pre-Operative Diagnosis: Chronic tonsillitis Post-Operative Diagnosis: same Surgery/Procedure Performed:: Tonsillectomy Description of Surgical Findings:: Joselin is a 22-year-old female which is vibration of 6 episodes of sore throat within the last 6 months as well as prior problems in the past and exam showing cryptic tonsillar hypertrophy. The above procedures often hopes of alleviation of these complaints. The risks, alternatives, potential complications, and benefits were discussed at length and any questions answered to the patient and/or caregiver's satisfaction. Witnessed informed consent was obtained in the office, and the patient and/or caregiver was agreeable to proceed. Procedure went as follows: The patient was identified in the preoperative holding, brought to the operating room, was placed under general anesthesia and intubated. When appropriate anesthesia was obtained, the head of bed was rotated and the patient prepped and draped in usual sterile fashion. A Kenzie Lencho mouthgag was then placed and the patient suspended from the Jackson stand. The oral cavity was examined and noted to have 3+ cryptic tonsillar hypertrophy. Beginning on the right side, the right tonsil was then grasped with a curved tenaculum and dissected from the underlying capsule with monopolar cautery. This was then sent as specimen. Similar procedure was then completed on the contralateral side. The oral and nasal cavities were then irrigated with saline solution. An NG tube was then placed to decompress the stomach. The patient was then returned to anesthesia, revived and extubated having tolerated the procedure well. Anesthesiologist: Yao Monson Special Medications: none Specimen's removed: bilateral tonsils Drains: none Estimated Blood Loss (mL): 0 mL Fluids Replaced: 300 mL Grafts/Implants Used: none - Complications none - Admit VTE Documentation VTE Present on Admission: No VTE Mechan Device Prophylaxis: SCD's VTE Pharm Prophylaxis ordered?: No
--- NOTE | 2018-08-27 11:07 | DCINST_ITS ---
Discharge Diet: No Restrictions Discharge Activity: Return to Normal Activity Call your doctor if your incision/area has: Sudden Increased Bleeding Call your doctor if you observe: Fever of 101 or Higher, Uncontrolled pain Allergies/Adverse Reactions: Allergies ketorolac [From Toradol] Allergy (Verified 08/27/18 09:09) Hives povidone-iodine [From Betadine] Allergy (Verified 08/27/18 09:09) Hives soap [From Betadine] Allergy (Verified 08/27/18 09:09) Hives tramadol Allergy (Verified 08/27/18 09:09) Hives PLASTIC TAPE Allergy (Uncoded 08/27/18 09:09) Rash Medications to take at Discharge Tacrolimus Anhydrous [Prograf] 3 mg PO BID 06/28/16 busPIRone [Buspar] 10 mg PO TID PRN 08/12/16 Aripiprazole [Abilify] 15 mg PO QHS 10/14/16 Gabapentin [Neurontin] 900 mg PO QHS 10/14/16 Sumatriptan Succinate [Imitrex] 50 mg PO DAILY PRN 12/05/16 proMETHazine tablet [Phenergan] 25 mg PO Q6H PRN PRN #20 tablet 01/23/17 Mycophenolate Mofetil [Cellcept] 500 mg PO BID 12/31/17 Temazepam 15 mg PO QHS 12/31/17 Levetiracetam [Keppra] 750 mg PO QHS 02/02/18 Iron Carbonyl [Feosol] 65 mg PO DAILY 08/25/18 Primary Care Physician: Mark Vaughan MD [Primary Care Provider] - Test Results: Test results from this visit will be discussed in further detail at your follow- up appointment, if applicable. Please Follow Up With: Kem Lee MD When: 2 weeks
[2018-08-27] MEDS: Acetaminophen 160 MG/5 ML UDC 500 MG PO (12:40)
[2018-08-27] MEDS: Lactated Ringers 1,000 ML 120 ML IV (12:48)
[2018-08-27] MEDS: Ibuprofen 100 MG/5 ML UDC 495 MG PO (14:59)
== END 2018-08-27 15:11 | disposition home or self-care (01) ==
LOC: SDC 08:47 → AC 08:48
PROVIDERS: Anesthesiology; Family Provider Family Medicine; PCP Family Medicine; Referring Provider Otolaryngology; Visit Provider Otolaryngology
PROC: (CPT 42826; principal; 2018-08-27 10:05)
DX: J35.01 Chronic tonsillitis (principal); J34.89 Other specified disorders of nose and nasal sinuses; D64.9 Anemia, unspecified; F41.9 Anxiety disorder, unspecified; Z94.4 Liver transplant status; G43.909 Migraine, unspecified, not intractable, without status migrainosus; Z79.899 Other long term (current) drug therapy
CPT/HCPCS: 00170; 42826; 81025; 85610; 85730; 88304; J7120; J2405

== ENCOUNTER 2018-09-28 20:28 | Emergency (ER) | payer MEDICAID, SELFPAY ==
[2018-09-28 13:50] VITALS: BMI 19.9
[2018-09-28 20:28] VITALS: BP 132/93; PULSE 104; RESP 16; TEMP 36.9; O2SAT 99; BMI 20.1
[2018-09-28 22:08] LABS: Mucous, Urine 0 SEEN /hpf (<or=2+); Red Blood Cells-Urine 0 SEEN /hpf (0-5)
[2018-09-28 22:09] LABS: Absolute Lymphocyte Count 1.82 X10^3/ul (0.83-4.51); Absolute Neutrophil Count 3.8 X10^3/uL (2.0-7.7); Basophil# 0.06 X10^3/uL; Basophil% 0.9 % (0-1); Eosinophil# 0.32 X10^3/uL; Eosinophils% 4.8 % (0-5); Hematocrit 31.5 % (37-47); Hemoglobin 9.6 g/dl (12.0-15.0); Lymphocyte # 1.82 X10^3/ul (4.0); Lymphocyte % 27.1 % (19-41); Mean Corp Hgb Conc 30.5 g/gl (32-36); Mean Corpuscular Hgb 23.6 pg (27.0-32.0); Mean Corpuscular Volume 77.6 fL (81-99); Mean Platelet Vol. 11.3 fl (6.2-12.0); Monocyte# 0.71 X10^3/uL; Monocyte% 10.6 % (0-10); Neutrophil # 3.79 X10^3/uL (2.7-7.7); Neutrophil % 56.5 % (47-70); Platelet Count 204 K/mm3 (150-450); RBC Distribution Width CV 15.3 % (11.6-14.6); RBC Distribution Width SD 43.3 fl (35.1-43.9); Red Blood Count 4.06 M/mm3 (4.2-5.4); White Blood Count 6.7 K/mm3 (4.4-11.0)
[2018-09-28 22:10] LABS: POSITIVE COUNT NO; POSITIVE DIFFERENTIAL NO; POSITIVE MORPHOLOGY NO
[2018-09-28 22:20] LABS: Color, Urine Yellow (Yellow); Glucose, Dipstick Normal (Normal); Ketone-Dipstick Negative (Negative); Leukocyte Esterase-Dipstick 500 /ul (Negative); Nitrite-Dipstick Negative (Negative); Occult Blood-Urine 250 /ul (Negative); Protein-Dipstick 30 mg/dl (Negative); Specific Gravity, Urine 1.015 (1.002-1.030); Urine Bilirubin Dipstick Negative (Negative); Urine Clarity Cloudy (Clear); Urine Urobilinogen Normal (Normal)
--- NOTE | 2018-09-28 22:20 | CT_ITS ---
STUDY: CT ABDOMEN AND PELVIS WITH CONTRAST REASON FOR EXAM: Female, 22 years old. Right upper quadrant pain. History of liver transplant. RADIATION DOSAGE (If Supplied By Facility): CTDIvol = ( 13.23 ) mGy, DLP = ( 340.43 ) mGycm TECHNIQUE: Transaxial images were obtained from the dome of the diaphragm to the symphysis pubis without oral contrast. 100ML IV Isovue 300 was administered. Sagittal and coronal images were reconstructed. Individualized dose optimization techniques were used for this CT. COMPARISON: October 14, 2016. FINDINGS: The visualized lung bases are unremarkable. The visualized portions of the heart are within normal limits. There is hepatomegaly with diffuse hepatic enlargement. There is pneumobilia. There are surgical clips in the gallbladder fossa consistent with a prior cholecystectomy. There is mild splenomegaly. Normal pancreas. Normal bilateral adrenal glands. Normal right kidney. Normal left kidney. Normal visualized stomach. Normal small intestine. Normal colon. The appendix is visualized and appears normal. Normal abdominal aorta. Normal inferior vena cava. Normal retroperitoneum. Normal urinary bladder. Normal visualized uterus. There are right adnexal cysts. There is normal free fluid in the abdomen or pelvis. There is postoperative change of the right upper abdominal wall. Normal osseous structures. CT/Abdomen/Pelvis W IV Cont ONLY IMPRESSION: Hepatosplenomegaly. No dominant mass or obstruction. Electronically Signed: Luis Angel Cates MD at 23:26 EDT , Service support ,
[2018-09-28 22:26] LABS: Anion Gap 6 (5-15); BUN 17 mg/dL (7-18); BUN/Creat Ratio 22.9 RATIO (10-20); Calcium,Total 8.7 mg/dL (8.5-10.1); Chloride 106 mmol/L (98-107); Creatinine, Serum 0.74 mg/dL (0.55-1.02); EST Glomerular Filtration Rate 103 mL/min (>60); Est Glom Filt Rate - Afr Amer 124 mL/min (>60); Estimated Creatinine Clearance 93.13 ml/min; Glucose 93 mg/dL (74-106); Potassium 3.8 mmol/L (3.5-5.1); Sodium Level 141 mmol/L (136-145)
--- NOTE | 2018-09-28 22:29 | ED.DCSUM_ITS ---
- ER Visit Summary Date of Service: 09/28/18 Chief Complaint: Right upper quadrant abdominal pain History of Present Illness: The patient is a 22 F status post liver transplant. States she is had right upper quadrant abdominal pain for about 3 to 4 days. Is primarily a dull ache but at times is sharp and stabbing. She has nausea and vomiting but states that she frequently has nausea and vomiting. Her last menstrual. Was 1 to 2 weeks ago. She states she cannot be because she is in a homosexual relationship with another woman. 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 She is on antirejection medications. She denies any fever. No melena. Physical Examination: Young female no acute distress vital signs are stable afebrile. She is sitting in bed appears comfortable. HEENT exam unremarkable neck nontender lungs are clear heart rhythm no murmur. Abdomen is soft. Minimally bloated. Mild right upper quadrant tenderness. No peritoneal signs. Well-healed right upper quadrant liver transplant surgical incision that is well-healed. Right lower quadrant is nontender. Normal bowel sounds. No signs of obstruction. No hernias or masses. Patient is moving all 4 extremities. No edema. Neurologically she is awake and alert with no focal motor deficits. Test Results: CBC White count 6. Hemoglobin 9.6 which is her baseline chronic anemia. Electrolytes unremarkable normal creatinine gap. Liver enzymes unremarkable ALT is 67 AST of 45. Lipase normal 121 UA negative. Serum test negative. CT abdomen pelvis shows hepatosplenomegaly no mass. No acute process. The appendix is seen and normal. Read by the radiologist reviewed by me. Emergency Department Course and Treatment: Treated with fluids and IV Zofran. Currently she did not want anything for pain. She will undergo labs and a CAT scan of her abdomen and pelvis IV contrast. Patient is doing well. She received saline and Zofran. Her nausea is resolved. We discussed all test results. They are comfortable being discharged home. Her abdomen is benign. Treatment Plan: Zofran as needed for nausea. Follow-up with her primary care doctor for repeat evaluation. Disposition: Discharge Impression: Acute right upper quadrant abdominal pain of uncertain etiology Chronic anemia History of prior liver transplant History of cholecystectomy This note was generated with [employer] software. It may contain incorrect words, spelling, and punctuation that were not noted in review of the chart prior to signing ED Disposition - Plan for ED Patient: Referrals: Mark Vaughan MD [Primary Care Provider] -
[2018-09-28 22:31] VITALS: BP 126/70; PULSE 85; RESP 16; O2SAT 98
[2018-09-28 22:31] LABS: Bacteria 1+ /hpf (None Seen)
[2018-09-28 22:32] LABS: White Blood Cells 0-5 SEEN /hpf (0-5)
[2018-09-28 22:33] LABS: Squamous Epithelial Cells - UA 5-10 SEEN /hpf (5-10)
[2018-09-28] MEDS: Ondansetron 4 MG/2 ML Vial IV (22:37)
[2018-09-28] MEDS: 0.9% Normal Saline 1,000 ML 1000 ML IV (22:37)
[2018-09-28 22:43] LABS: Internal QC Validated? YES +Cl - CLEAR BKGD; Pregnancy, Serum, hCG Quali. NEGATIVE Negative
[2018-09-28 22:54] LABS: AST(SGOT) 45 U/L (15-37); Alanine Aminotransfer ALT/SGPT 67 U/L (13-56); Albumin, Serum 3.7 g/dL (3.2-5.0); Alkaline Phosphatase 96 U/L (45-117); Bilirubin, Direct 0.09 mg/dL (0.00-0.30); Globulin 3.7 g/dL (2.2-4.2); Lipase 121 U/L (73-393); Protein, Total 7.4 g/dL (6.4-8.2)
--- NOTE | 2018-09-28 23:39 | ED.DEP ---
ED Disposition - Plan for ED Patient: Disposition: Home or Assisted Living Instructions: ED Abdominal Pain Unkn Cause Prescriptions: Ondansetron [Zofran Odt] 4 mg PO Q8H PRN PRN #7 tab PRN Reason: Nausea Referrals: Mark Vaughan MD [Primary Care Provider] - 3-5 Days Additional Instructions: Your labs and CAT scan tonight are unremarkable. Follow-up with primary care physician
[2018-09-28 23:41] VITALS: BP 132/70; PULSE 82; RESP 14; O2SAT 99
[2018-09-28] MEDS: Magnesium Citrate 300 ML PO (23:45)
== END 2018-09-28 23:47 | disposition home or self-care (01) ==
PROVIDERS: Emergency Provider Emergency Medicine; Family Provider Family Medicine; PCP Family Medicine
DX: R10.11 Right upper quadrant pain (principal); D64.9 Anemia, unspecified; Z94.4 Liver transplant status; Z90.49 Acquired absence of other specified parts of digestive tract; Z79.899 Other long term (current) drug therapy
CPT/HCPCS: 74177; 80048; 80076; 81001; 83690; 84703; 85025; 96361; 96374; 99284; Q9967; A4216; J2405

== ENCOUNTER → 2018-10-28 17:01 | Outpatient (CLI) | payer MEDICAID, SELFPAY ==
[2018-09-28 20:28] VITALS: BMI 20.1
[2018-10-28 17:29] LABS: Erythrocyte Sedimentation Rate 5 mm/hr (0-20)
[2018-10-28 17:50] LABS: CRP < 2.90 mg/L (0.0-3.0); Lipase 62 U/L (73-393)
== END ==
PROVIDERS: Family Provider Family Medicine; PCP Family Medicine; Referring Provider Family Medicine; Visit Provider Family Medicine
DX: R10.84 Generalized abdominal pain (principal)
CPT/HCPCS: 83690; 85652; 86140